=== PATIENT | female | born 1955 | race Hispanic/Latino ===

== ENCOUNTER 2018-03-29 01:37 | Inpatient (IN) | payer BC ==
--- NOTE | 2018-03-29 01:45 | C.PDOC ---
History Of Present Illness 62 year old female is brought to the ED by EMS for evaluation of SOB. Patient reports she has been feeling shortness of breath over the last week, but it worsened tonight. Patient was initially speaking in 2-3 word sentences. Patient received 1 ASA and placed on 2 L nasal cannula by EMS. Patient is feeling much better now, speaking in complete sentences. Patient denies CP, fever, chill, nausea, vomit. Time Seen by Provider: 03/29/18 01:44 Chief Complaint (Nursing): Shortness Of Breath History Per: Patient, EMS History/Exam Limitations: no limitations Onset/Duration Of Symptoms: Days Current Symptoms Are (Timing): Still Present Initiating Event: Upper Respiratory Illness Exacerbating Factor(s): Exertion, Laying Flat, Coughing Current Respiratory Medications: See Home Med List Severity: Moderate Pain Scale Rating Of: 4 Associated Symptoms: Chest Pain. denies: Fever, Chills, Sweating Reports Recently: Treated By A Physician Recent travel outside of the [place]: No Additional History Per: Patient, EMS Past Medical History Reviewed: Historical Data, Nursing Documentation, Vital Signs Vital Signs: Last Vital Signs Temp 98.5 F 03/29/18 01:43 Pulse 66 03/29/18 03:29 Resp 16 03/29/18 03:29 BP 121/81 03/29/18 03:29 Pulse Ox 96 03/29/18 03:29 - Medical History PMH: No Chronic Diseases Surgical History: No Surg Hx Family History: States: Unknown Family Hx - Social History Hx Tobacco Use: No Hx Alcohol Use: No Hx Substance Use: No Review Of Systems Constitutional: Negative for: Fever, Chills Cardiovascular: Negative for: Chest Pain, Palpitations Respiratory: Positive for: Shortness of Breath. Negative for: Cough Gastrointestinal: Negative for: Nausea, Vomiting Skin: Negative for: Rash Neurological: Negative for: Weakness, Numbness, Headache Physical Exam - Physical Exam Appears: Non-toxic, Other (moderate discomfort) Skin: Warm, Dry Head: Normacephalic Eye(s): bilateral: Normal Inspection Oral Mucosa: Moist Lips: Normal Appearing Neck: Supple Chest: Symmetrical Cardiovascular: Rhythm Regular Respiratory: Rales (few at bases), Rhonchi (scattered), No Wheezing, Other ( nasal cannula) Gastrointestinal/Abdominal: Soft, No Tenderness, No Guarding, No Rebound Back: Normal Inspection Extremity: No Tenderness, No Swelling Extremity: Bilateral: Atraumatic, Normal Color And Temperature, Normal ROM Pulses: Left Dorsalis Pedis: Normal, Right Dorsalis Pedis: Normal Neurological/Psych: Oriented x3, Normal Speech Gait: Steady ED Course And Treatment - Laboratory Results Result Diagrams: 03/29/18 02:02 03/29/18 02:02 ECG: Interpreted By Me, Viewed By Me ECG Rhythm: Sinus Rhythm (70), ST/T Changes (ant lat ischemic changes) O2 Sat by Pulse Oximetry: 94 Pulse Ox Interpretation: Normal Progress Note: Plan: - Labs. - ABG. - CXR. - EKG. when patient ambulates to the [facility] [place], operated by [facility] , she desaturates into the low 80's Disposition Discussed With DrShiva: Kevyn Alcantara Comment: accepted the pt on his service and took over the care at 3:34 AM Doctor Will See Patient In The: ED Counseled Patient/Family Regarding: Studies Performed, Diagnosis - Disposition Disposition: HOSPITALIZED Disposition Time: 01:45 Condition: FAIR Forms: [employer] ([place]) - POA Present On Arrival: Poor Glycemic Control - Clinical Impression Clinical Impression: Dyspnea, CHF (congestive heart failure), Renal insufficiency - Scribe Statement The provider has reviewed the documentation as recorded by the Scribe Gama Starr All medical record entries made by the Scribe were at my direction and personally dictated by me. I have reviewed the chart and agree that the record accurately reflects my personal performance of the history, physical exam, medical decision making, and the department course for this patient. I have also personally directed, reviewed, and agree with the discharge instructions and disposition. Decision To Admit - Pt Status Changed To: Hospital Disposition Of: Inpatient - Admit Certification Admit to Inpatient:: After my assessment, the patient will require hospitalization for at least two midnights. This is because of the severity of symptoms shown, intensity of services needed, and/or the medical risk in this patient being treated as an outpatient. - InPatient: Physician Admission Certification: I certify that this patient requires 2 or more midnights of care for the following reason:: After my assessment, the patient will require hospitalization for at least two midnights. This is because of the severity of symptoms shown, intensity of services needed, and/or the medical risk in this patient being treated as an outpatient. - . Bed Request Type: Telemetry Admitting Physician: Kevyn Alcantara Patient Diagnosis: Dyspnea, CHF (congestive heart failure), Renal insufficiency
[2018-03-29 02:05] LABS: BASO % 0.4 % (0.0-2.0); HEMOGLOBIN 13.4 g/dL (11.0-16.0); LYMPH # 3.2 K/uL (1.0-4.3); LYMPH % 39.1 % (20.0-40.0); MEAN CELL VOLUME 83.9 fL (81.0-99.0); MEAN CORPUSCULAR HEMOGLOBIN 29.5 pg (27.0-31.0); MEAN CORPUSCULAR HGB CONC 35.2 g/dL (33.0-37.0); MEAN PLATELET VOLUME 9.4 fL (7.2-11.7); MONO # 0.6 K/uL (0.0-0.8); MONO % 7.3 % (0.0-10.0); NEUT # 4.4 K/uL (1.8-7.0); NEUT % 53.2 % (50.0-75.0); NRBC % 0.1 % (0.0-2.0); RBC 4.55 Mil/uL (3.80-5.20); RED CELL DISTRIBUTION WIDTH 14.2 % (11.5-14.5); WHITE BLOOD COUNT 8.2 K/uL (4.8-10.8)
[2018-03-29 02:12] LABS: INR 1.2; PROTHROMBIN TIME 12.7 SECONDS (9.7-12.2)
[2018-03-29 02:17] LABS: ABG ALLEN TEST POS; ARTERIAL BLOOD GAS HCO3 22.2 mmol/L (21-28); ARTERIAL BLOOD GAS PCO2 24 mm/Hg (35-45); ARTERIAL BLOOD GAS PH 7.49 (7.35-7.45); ARTERIAL BLOOD GAS PO2 58 mm/Hg (80-100)
[2018-03-29 02:47] LABS: ALB/GLOB RATIO 1.3 (1.0-2.1); CALCIUM 8.8 mg/dl (8.6-10.4)
[2018-03-29 02:49] LABS: SQUAMOUS EPITHIAL 6 /hpf (0-5); URINE BILIRUBIN NEGATIVE (NEGATIVE); URINE BLOOD NEGATIVE (NEGATIVE); URINE CLARITY Hazy (Clear); URINE COLOR Yellow (YELLOW); URINE GLUCOSE (UA) NORMAL (Normal); URINE HYALINE CAST 0-2 /lpf (0-2); URINE LEUKOCYTE ESTERASE 2+ Leu/uL (Negative); URINE PROTEIN 1+ mg/dL (NEGATIVE)
[2018-03-29] MEDS ORDERED: Enoxaparin 40 mg Syringe SC STA (03:37)
[2018-03-29] MEDS ORDERED: Potassium Chloride 10 mEq ER Tab PO STA (03:37)
[2018-03-29] MEDS ORDERED: Enoxaparin 100 mg Syringe ONE (03:47)
[2018-03-29] MEDS ORDERED: Potassium Chloride 20 mEq ER Tab PO ONE ×3 (03:49→20:00)
[2018-03-29] MEDS ORDERED: Sodium Chloride 0.9% 500 ML IV ONE (04:30)
--- NOTE | 2018-03-29 05:56 | CP.PCM.HP ---
History of Present Illness - History of Present Illness History of Present Illness: HPI: Patient is a 62 year old female with a history of HTN, HLD, hypothyroidism , CKD stage 3, gout, and newly diagnosed asthma, who presents with complaints of shortness of breath. Her symptoms originally started one year ago, has been worsening for the past 6 months, and were the worst since Thursday. She also admits to a cough, productive of white phlegm. She sleeps with 4 pillows and cannot walk more than 10 feet before becoming out of breath. She recently went to her developmental electronics assembler, Dr. Lyons, who diagnosed her with asthma and prescribed several inhalers. Per her daughter at bedside, her mother recently came back from visiting her son and had been eating fried foods for the past week. Patient denies chest pain, abdominal pain, dyspnea, nausea, vomiting, fevers, headaches, vision changes, dizziness, dysuria, hematuria, changes in urinary stream, leg pain and leg swelling. PMD: Dr. Ellsworth Garden Worker: Dr. Mendoza Pulm: Dr. Lyons PMHx: HTN, HLD, hypothyroidism, CKD stage 3, gout, and newly diagnosed asthma SurgHx: tubal ligation 1982 FamHx: Mother-pancreatic and uterine cancer SocHx: denies tobacco, alcohol, and drug use;currently lives with daughter in . lived with son and son's for two years who smoked 2+ packs per day. 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 Present on Admission - Present on Admission Any Indicators Present on Admission: No Review of Systems - Constitutional Constitutional: Weakness. absent: Chills, Fever, Headache - EENT Ears: Dizziness (intermittent, when walking) - Cardiovascular Cardiovascular: Dyspnea, Dyspnea on Exertion, Rapid Heart Rate. absent: Chest Pain, Edema, Leg Edema - Respiratory Respiratory: Cough (productive of white phlegm), Dyspnea, Dyspnea on Exertion. absent: Hemoptysis, Wheezing - Gastrointestinal Gastrointestinal: absent: Abdominal Pain, Constipation, Diarrhea, Nausea, Vomiting - Genitourinary Genitourinary: absent: Change in Urinary Stream, Dysuria, Hematuria, Urinary Frequency - Musculoskeletal Musculoskeletal: absent: Back Pain - Integumentary Integumentary: absent: Rash, Swelling - Neurological Neurological: Weakness. absent: Dizziness, Headaches - Endocrine Endocrine: Fatigue Past Patient History - Past Social History Smoking Status: Never Smoked - CARDIAC Hx Hypercholesterolemia: Yes Hx Hypertension: Yes - PULMONARY Hx Asthma: Yes Hx Bronchitis: Yes - RENAL Hx Chronic Kidney Disease: Yes ("STAGE 3") Hx Dialysis: No - ENDOCRINE/METABOLIC Hx Hypothyroidism: Yes - MUSCULOSKELETAL/RHEUMATOLOGICAL Hx Gout: Yes - PSYCHIATRIC Hx Substance Use: No - SURGICAL HISTORY Hx Surgeries: No - ANESTHESIA Hx Anesthesia: No Meds Allergies/Adverse Reactions: Allergies Allergy/AdvReac Type Severity Reaction Status Date / Time No Known Allergies Allergy Unverified 03/29/18 01:50 Physical Exam - Constitutional Appears: No Acute Distress - Head Exam Head Exam: absent: ATRAUMATIC, NORMAL INSPECTION - Eye Exam Eye Exam: absent: EOMI, Normal appearance, PERRL - ENT Exam ENT Exam: Mucous Membranes Dry - Respiratory Exam Respiratory Exam: Rales (Right basilar ), NORMAL BREATHING PATTERN. absent: Rhonchi, Wheezes, Respiratory Distress - Cardiovascular Exam Cardiovascular Exam: REGULAR RHYTHM, +S1, +S2 Additional comments: split s2 - GI/Abdominal Exam GI & Abdominal Exam: Normal Bowel Sounds, Soft. absent: Distended, Firm, Tenderness - Extremities Exam Extremities exam: Positive for: normal inspection, pedal pulses present. Negative for: pedal edema, tenderness - Neurological Exam Neurological exam: Alert, Oriented x3 - Psychiatric Exam Psychiatric exam: Normal Affect, Normal Mood - Skin Skin Exam: Dry, Intact, Normal Color, Warm Results - Vital Signs Recent Vital Signs: Last Vital Signs Temp 98.5 F 03/29/18 01:43 Pulse 66 03/29/18 03:29 Resp 16 03/29/18 03:29 BP 121/81 03/29/18 03:29 Pulse Ox 94 L 03/29/18 03:37 - Labs Result Diagrams: 03/29/18 02:02 03/29/18 02:02 Labs: Laboratory Results - last 24 hr 03/29/18 03/29/18 03/29/18 01:55 01:55 02:02 WBC 8.2 RBC 4.55 Hgb 13.4 Hct 38.2 MCV 83.9 MCH 29.5 MCHC 35.2 RDW 14.2 Plt Count 154 MPV 9.4 Neut % (Auto) 53.2 Lymph % (Auto) 39.1 [place] % (Auto) 7.3 Eos % (Auto) 0.0 Baso % (Auto) 0.4 Neut # (Auto) 4.4 Lymph # (Auto) 3.2 [place] # (Auto) 0.6 Eos # (Auto) 0.0 Baso # (Auto) 0.0 PT 12.7 H INR 1.2 APTT 29 Puncture Site pCO2 pO2 HCO3 ABG pH ABG Total CO2 ABG O2 Saturation ABG Base Excess Tre Test ABG Potassium Glucose Lactate Liter Flow Crit Value Called To Crit Value Called By Crit Value Read Back Blood Gas Notified Time Sodium Potassium Chloride Carbon Dioxide Anion Gap BUN Creatinine Est GFR ( Amer) Est GFR (Non-Af Amer) Random Glucose Calcium Magnesium Total Bilirubin AST ALT Alkaline Phosphatase Troponin I NT-Pro-B Natriuret Pep Total Protein Albumin Globulin Albumin/Globulin Ratio Arterial Blood Potassium Urine Color Yellow Urine Clarity Hazy Urine pH 6.0 Ur Specific [place] 1.014 Urine Protein 1+ H Urine Glucose (UA) Normal Urine Ketones Negative Urine Blood Negative Urine Nitrate Negative Urine Bilirubin Negative Urine Urobilinogen 2.0 H Ur Leukocyte Esterase 2+ H Urine WBC (Auto) 6 H Urine RBC (Auto) 1 Ur Squamous Epith Cells 6 H Hyaline Casts 0-2 03/29/18 03/29/18 03/29/18 02:02 02:05 03:04 WBC RBC Hgb Hct MCV MCH MCHC RDW Plt Count MPV Neut % (Auto) Lymph % (Auto) [place] % (Auto) Eos % (Auto) Baso % (Auto) Neut # (Auto) Lymph # (Auto) [place] # (Auto) Eos # (Auto) Baso # (Auto) PT INR APTT Puncture Site Rradial pCO2 24 L pO2 58 L HCO3 22.2 ABG pH 7.49 H ABG Total CO2 19.0 L ABG O2 Saturation 93.0 L ABG Base Excess -3.3 L Tre Test Pos ABG Potassium 2.5 L* Glucose 107 H Lactate 2.3 H Liter Flow 3.0 Crit Value Called To Crit Value Called By Laura adair rcp Crit Value Read Back Y Blood Gas Notified Time 216 Sodium 144 144.0 Potassium 3.0 L Chloride 107 110.0 H Carbon Dioxide 22 Anion Gap 19 BUN 28 H Creatinine 1.8 H Est GFR ( Amer) 34 Est GFR (Non-Af Amer) 29 Random Glucose 148 H Calcium 8.8 Magnesium 1.6 Total Bilirubin 1.1 AST 19 ALT 17 Alkaline Phosphatase 118 Troponin I 0.0910 NT-Pro-B Natriuret Pep 44879 H Total Protein 7.0 Albumin 4.0 Globulin 3.0 Albumin/Globulin Ratio 1.3 Arterial Blood Potassium 2.5 L* Urine Color Urine Clarity Urine pH Ur Specific [place] Urine Protein Urine Glucose (UA) Urine Ketones Urine Blood Urine Nitrate Urine Bilirubin Urine Urobilinogen Ur Leukocyte Esterase Urine WBC (Auto) Urine RBC (Auto) Ur Squamous Epith Cells Hyaline Casts Assessment & Plan - Assessment and Plan (Free Text) Plan: Short of breath Pulmonary congestion secondary to heart failure? Secondary to Acute on chronic Renal failure? * Cardiology, Dr. Kaur, consulted * CXR: bilateral lower lung consolidations * Daily weights * Monitor intake & output * Head of bed 45deg * Echo: f/u * Troponin x1: negative; f/u troponins x2 * BNP 13,300 * Medications: * Duonebs Q6h x 24 hrs until 8am 03/30/18 * O2 via nasal cannula, keep SpO2 > 92% * Lasix IV Q12h Ckd Stage 4 * Nephrology consulted, Dr. Mendoza; help appreciated * Will need to follow up with [facility] to obtain baseline labs Hypokalemia * 40meq KCl + 20meq (in ED) given * Continue to monitor Possible UTI * Urinalysis: 1+ protein, 2+ LE * Urine cx: f/u * Patient is asymptomatic, no treatment at this time. HTN * Hold home medications: amlodipine (until completing echo) and Tenoretic (due to active CHF and acute on chronic renal failure) * Will not start a beta kelsy or perla/arb due to BUN/Cr, CKD4. * Can consider hydralazine/imdur after echo taken * Continue to monitor HLD * Crestor 20mg PO HS * Lipid panel: f/u Hypothyroidism * Continue Synthroid 50mcg PO daily * TSH/Free T4: f/u Gout * Continue Uloric 40mg PO daily * Hold tenoretic as it can cause hyperuricemia Questionable hx of asthma? * Hold home medications * Duonebs Q6h til 8am on 03/30/18 * SOB possibly due to undiagnosed CHF? Prophylaxis: * Heart healthy 2gm Na low carb diet * DVT: risk score fo 4--> Heparin 5000u SC Q8, SCDs * GI: not indicated
[2018-03-29] MEDS: Levothyroxine 50 MCG TAB PO SCH (06:32)
--- NOTE | 2018-03-29 09:16 | RAD ---
PROCEDURE: CHEST RADIOGRAPH, 1 VIEW HISTORY: SOB COMPARISON: None available. FINDINGS: LUNGS: The lungs are well inflated and clear. PLEURA: No pneumothorax or pleural fluid seen. CARDIOVASCULAR: Normal. OSSEOUS STRUCTURES: No significant abnormalities. VISUALIZED UPPER ABDOMEN: Normal. OTHER FINDINGS: None. IMPRESSION: No active pulmonary disease.
[2018-03-29 10:33] LABS: TROPONIN I 0.07 ng/mL (0.00-0.120)
[2018-03-29 11:45] LABS: CALCIUM 9.1 mg/dl (8.6-10.4)
[2018-03-29] MEDS: Albuterol-Ipratrop 3 mg / 0.5 (3 ml) UD INH SCH ×2 (14:01→19:10)
--- NOTE | 2018-03-29 14:21 | CP.PCM.CON ---
<Caitlyn ColeShiva - Last Filed: 03/29/18 17:34> History of Present Illness - History of Present Illness History of Present Illness: PGY2 Consult Note for Dr. Kaur. Patient is a 62 year old female with a history of HTN, HLD, hypothyroidism, CKD stage 3, gout, and newly diagnosed asthma, who presents with complaints of shortness of breath. Patient says at baseline she sleeps at night on multiple pillows and for the past 4 months has become SOB with minimal exertion, only being able to walk a few feet before becoming short of breath. For the past few days her shortness of breath has worsened. She denies any cold symptoms and has not had any sick contacts. She recently went to her dock associate, Dr. Lyons, who diagnosed her with asthma and prescribed several inhalers. Patient has been using the inhalers with no relief. Patient admits to having a few seconds of chest pain yesterday which resolved. Cardiology consulted for possible new CHF. Today patient still is short of breath and becomes very short of breath when she walks to the bathroom. Patient denies chest pain, abdominal pain, nausea, vomiting, fevers, headaches, vision changes, dizziness, dysuria, hematuria, changes in urinary stream, leg pain and leg swelling. PMD: Dr. Ellsworth Nutrition Counselor: Dr. Mendoza (not on dialysis) Pulm: Dr. Lyons PMHx: HTN, HLD, hypothyroidism, CKD stage 3, gout, and newly diagnosed asthma SurgHx: tubal ligation 1982 FamHx: Mother-pancreatic and uterine cancer SocHx: denies tobacco, alcohol, and drug use;currently lives with daughter in . lived with son and son's for two years who smoked 2+ packs per day. 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 Review of Systems - Constitutional Constitutional: absent: Chills, Fever - EENT Eyes: absent: Blurred Vision Nose/Mouth/Throat: absent: Nasal Congestion, Sore Throat - Cardiovascular Cardiovascular: Dyspnea, Dyspnea on Exertion. absent: Leg Edema, Palpitations - Respiratory Respiratory: Dyspnea, Dyspnea on Exertion - Gastrointestinal Gastrointestinal: absent: Abdominal Pain, Constipation, Diarrhea, Nausea, Vomiting - Genitourinary Genitourinary: absent: Dysuria, Hematuria - Musculoskeletal Musculoskeletal: absent: Numbness, Stiffness, Tingling - Integumentary Integumentary: absent: Rash Past Patient History - Past Social History Smoking Status: Never Smoked - CARDIAC Hx Hypercholesterolemia: Yes Hx Hypertension: Yes - PULMONARY Hx Asthma: Yes Hx Bronchitis: Yes - RENAL Hx Chronic Kidney Disease: Yes ("STAGE 3") Hx Dialysis: No - ENDOCRINE/METABOLIC Hx Hypothyroidism: Yes - MUSCULOSKELETAL/RHEUMATOLOGICAL Hx Gout: Yes - PSYCHIATRIC Hx Substance Use: No - SURGICAL HISTORY Hx Surgeries: No - ANESTHESIA Hx Anesthesia: No Meds Allergies/Adverse Reactions: Allergies Allergy/AdvReac Type Severity Reaction Status Date / Time shellfish derived Allergy Mild ITCHING Verified 03/29/18 08:40 - Medications Medications: Current Medications Albuterol/Ipratropium (Duoneb 3 Mg/0.5 Mg (3 Ml) Ud) 3 ml INH RQ6 [facility] Stop: 03/30/18 08:00 Last Admin: 03/29/18 14:01 Dose: 3 ml Furosemide (Lasix) 20 mg IVP Q12H [facility] Last Admin: 03/29/18 09:44 Dose: 20 mg Heparin Sodium (Porcine) (Heparin) 5,000 units SC Q8 [facility] Home Med (Febuxostat [Uloric]) 40 mg PO DAILY [facility] Levothyroxine Sodium (Synthroid) 50 mcg PO DAILY@0630 [facility] Last Admin: 03/29/18 06:32 Dose: 50 mcg Rosuvastatin Calcium (Crestor) [address] [facility] Physical Exam - Constitutional Appears: Non-toxic, No Acute Distress - Head Exam Head Exam: ATRAUMATIC, NORMAL INSPECTION, NORMOCEPHALIC - Eye Exam Eye Exam: EOMI, Normal appearance - ENT Exam ENT Exam: Mucous Membranes Moist - Respiratory Exam Respiratory Exam: Clear to Auscultation Bilateral, NORMAL BREATHING PATTERN - Cardiovascular Exam Cardiovascular Exam: REGULAR RHYTHM, RRR, +S1, +S2 - GI/Abdominal Exam GI & Abdominal Exam: Normal Bowel Sounds, Soft. absent: Distended - Extremities Exam Extremities exam: Positive for: normal inspection. Negative for: tenderness Additional comments: trace pedal edema - Neurological Exam Neurological exam: Alert, Oriented x3 - Psychiatric Exam Psychiatric exam: Normal Affect, Normal Mood - Skin Skin Exam: Intact, Normal Color, Warm Results - Vital Signs Recent Vital Signs: Last Vital Signs Temp 99.9 F H 03/29/18 07:00 Pulse 65 03/29/18 14:04 Resp 20 03/29/18 07:54 BP 120/75 03/29/18 09:44 Pulse Ox 97 03/29/18 07:40 - Labs Result Diagrams: 03/29/18 02:02 03/29/18 06:12 Labs: Laboratory Results - last 24 hr 03/29/18 03/29/18 03/29/18 01:55 01:55 02:02 WBC 8.2 RBC 4.55 Hgb 13.4 Hct 38.2 MCV 83.9 MCH 29.5 MCHC 35.2 RDW 14.2 Plt Count 154 MPV 9.4 Neut % (Auto) 53.2 Lymph % (Auto) 39.1 [place] % (Auto) 7.3 Eos % (Auto) 0.0 Baso % (Auto) 0.4 Neut # (Auto) 4.4 Lymph # (Auto) 3.2 [place] # (Auto) 0.6 Eos # (Auto) 0.0 Baso # (Auto) 0.0 PT 12.7 H INR 1.2 APTT 29 Puncture Site pCO2 pO2 HCO3 ABG pH ABG Total CO2 ABG O2 Saturation ABG Base Excess Tre Test ABG Potassium Glucose Lactate Liter Flow Crit Value Called To Crit Value Called By Crit Value Read Back Blood Gas Notified Time Sodium Potassium Chloride Carbon Dioxide Anion Gap BUN Creatinine Est GFR ( Amer) Est GFR (Non-Af Amer) Random Glucose Calcium Phosphorus Magnesium Total Bilirubin AST ALT Alkaline Phosphatase Troponin I NT-Pro-B Natriuret Pep Total Protein Albumin Globulin Albumin/Globulin Ratio Free T4 TSH 3rd Generation Arterial Blood Potassium Urine Color Yellow Urine Clarity Hazy Urine pH 6.0 Ur Specific [place] 1.014 Urine Protein 1+ H Urine Glucose (UA) Normal Urine Ketones Negative Urine Blood Negative Urine Nitrate Negative Urine Bilirubin Negative Urine Urobilinogen 2.0 H Ur Leukocyte Esterase 2+ H Urine WBC (Auto) 6 H Urine RBC (Auto) 1 Ur Squamous Epith Cells 6 H Hyaline Casts 0-2 0703/29/18 03/29/18 02:02 02:05 03:04 WBC RBC Hgb Hct MCV MCH MCHC RDW Plt Count MPV Neut % (Auto) Lymph % (Auto) [place] % (Auto) Eos % (Auto) Baso % (Auto) Neut # (Auto) Lymph # (Auto) [place] # (Auto) Eos # (Auto) Baso # (Auto) PT INR APTT Puncture Site Rradial pCO2 24 L pO2 58 L HCO3 22.2 ABG pH 7.49 H ABG Total CO2 19.0 L ABG O2 Saturation 93.0 L ABG Base Excess -3.3 L Tre Test Pos ABG Potassium 2.5 L* Glucose 107 H Lactate 2.3 H Liter Flow 3.0 Crit Value Called To Crit Value Called By Laura adair rcp Crit Value Read Back Y Blood Gas Notified Time 216 Sodium 144 144.0 Potassium 3.0 L Chloride 107 110.0 H Carbon Dioxide 22 Anion Gap 19 BUN 28 H Creatinine 1.8 H Est GFR ( Amer) 34 Est GFR (Non-Af Amer) 29 Random Glucose 148 H Calcium 8.8 Phosphorus Magnesium 1.6 Total Bilirubin 1.1 AST 19 ALT 17 Alkaline Phosphatase 118 Troponin I Cancelled 0.0910 NT-Pro-B Natriuret Pep 71876 H Total Protein 7.0 Albumin 4.0 Globulin 3.0 Albumin/Globulin Ratio 1.3 Free T4 TSH 3rd Generation Arterial Blood Potassium 2.5 L* Urine Color Urine Clarity Urine pH Ur Specific [place] Urine Protein Urine Glucose (UA) Urine Ketones Urine Blood Urine Nitrate Urine Bilirubin Urine Urobilinogen Ur Leukocyte Esterase Urine WBC (Auto) Urine RBC (Auto) Ur Squamous Epith Cells Hyaline Casts 03/29/18 03/29/18 06:12 06:12 WBC RBC Hgb Hct MCV MCH MCHC RDW Plt Count MPV Neut % (Auto) Lymph % (Auto) [place] % (Auto) Eos % (Auto) Baso % (Auto) Neut # (Auto) Lymph # (Auto) [place] # (Auto) Eos # (Auto) Baso # (Auto) PT INR APTT Puncture Site pCO2 pO2 HCO3 ABG pH ABG Total CO2 ABG O2 Saturation ABG Base Excess Tre Test ABG Potassium Glucose Lactate Liter Flow Crit Value Called To Crit Value Called By Crit Value Read Back Blood Gas Notified Time Sodium 145 Potassium 3.2 L Chloride 105 Carbon Dioxide 20 L Anion Gap 23 H BUN 29 H Creatinine 1.6 H Est GFR ( Amer) 40 Est GFR (Non-Af Amer) 33 Random Glucose 125 H Calcium 9.1 Phosphorus 3.4 Magnesium 1.6 Total Bilirubin AST ALT Alkaline Phosphatase Troponin I 0.0700 NT-Pro-B Natriuret Pep Total Protein Albumin Globulin Albumin/Globulin Ratio Free T4 2.17 TSH 3rd Generation 4.40 Arterial Blood Potassium Urine Color Urine Clarity Urine pH Ur Specific [place] Urine Protein Urine Glucose (UA) Urine Ketones Urine Blood Urine Nitrate Urine Bilirubin Urine Urobilinogen Ur Leukocyte Esterase Urine WBC (Auto) Urine RBC (Auto) Ur Squamous Epith Cells Hyaline Casts Assessment & Plan - Assessment and Plan (Free Text) Assessment: Short of breath Pulmonary congestion secondary to heart failure * Daily weights * Monitor intake & output * Head of bed 45deg * Echo: f/u * Troponin negative x 3 * BNP 13,300 * Medications: * Duonebs Q6h x 24 hrs until 8am 03/30/18 * O2 via nasal cannula, keep SpO2 > 92% * Lasix 20mg IV Q12h HTN * Hold home medications: amlodipine (until completing echo) and Tenoretic (due to active CHF and acute on chronic renal failure) * Will not start a beta kelsy or perla/arb due to BUN/Cr, CKD4. * Can consider hydralazine/imdur after echo taken * Continue to monitor R/O ischemic heart disease ekg with prolonged QTC and ST and T wave abnormalities repeat EKG electrolyte abnormalities- f/u repeat CMP and Mag <Truman Kaur - Last Filed: 03/29/18 23:30> Meds - Medications Medications: Current Medications Albuterol/Ipratropium (Duoneb 3 Mg/0.5 Mg (3 Ml) Ud) 3 ml INH RQ6 [facility] Stop: 03/30/18 08:00 Last Admin: 03/29/18 19:10 Dose: 3 ml Furosemide (Lasix) 20 mg IVP Q12H [facility] Last Admin: 03/29/18 22:04 Dose: 20 mg Heparin Sodium (Porcine) (Heparin) 5,000 units SC Q8 [facility] Home Med (Febuxostat [Uloric]) 40 mg PO DAILY [facility] Levothyroxine Sodium (Synthroid) 50 mcg PO DAILY@0630 [facility] Last Admin: 03/29/18 06:32 Dose: 50 mcg Magnesium Oxide (Mag-Ox) 400 mg PO TID [facility] Stop: 04/01/18 10:01 Rosuvastatin Calcium (Crestor) [address] [facility] Last Admin: 03/29/18 22:04 Dose: 20 mg Results - Vital Signs Recent Vital Signs: Last Vital Signs Temp 98.2 F 03/29/18 21:19 Pulse 72 03/29/18 21:19 Resp 20 03/29/18 21:19 BP 116/77 03/29/18 22:04 Pulse Ox 90 L 03/29/18 21:19 - Labs Result Diagrams: 03/29/18 02:02 03/29/18 17:32 Labs: Laboratory Results - last 24 hr 03/29/18 03/29/18 03/29/18 01:55 01:55 02:02 WBC 8.2 RBC 4.55 Hgb 13.4 Hct 38.2 MCV 83.9 MCH 29.5 MCHC 35.2 RDW 14.2 Plt Count 154 MPV 9.4 Neut % (Auto) 53.2 Lymph % (Auto) 39.1 [place] % (Auto) 7.3 Eos % (Auto) 0.0 Baso % (Auto) 0.4 Neut # (Auto) 4.4 Lymph # (Auto) 3.2 [place] # (Auto) 0.6 Eos # (Auto) 0.0 Baso # (Auto) 0.0 PT 12.7 H INR 1.2 APTT 29 Puncture Site pCO2 pO2 HCO3 ABG pH ABG Total CO2 ABG O2 Saturation ABG Base Excess Tre Test ABG Potassium Glucose Lactate Liter Flow Crit Value Called To Crit Value Called By Crit Value Read Back Blood Gas Notified Time Sodium Potassium Chloride Carbon Dioxide Anion Gap BUN Creatinine Est GFR ( Amer) Est GFR (Non-Af Amer) Random Glucose Calcium Phosphorus Magnesium Total Bilirubin AST ALT Alkaline Phosphatase Troponin I NT-Pro-B Natriuret Pep Total Protein Albumin Globulin Albumin/Globulin Ratio Free T4 TSH 3rd Generation Arterial Blood Potassium Urine Color Yellow Urine Clarity Hazy Urine pH 6.0 Ur Specific [place] 1.014 Urine Protein 1+ H Urine Glucose (UA) Normal Urine Ketones Negative Urine Blood Negative Urine Nitrate Negative Urine Bilirubin Negative Urine Urobilinogen 2.0 H Ur Leukocyte Esterase 2+ H Urine WBC (Auto) 6 H Urine RBC (Auto) 1 Ur Squamous Epith Cells 6 H Hyaline Casts 0-2 03/29/18 03/29/18 03/29/18 02:02 02:05 03:04 WBC RBC Hgb Hct MCV MCH MCHC RDW Plt Count MPV Neut % (Auto) Lymph % (Auto) [place] % (Auto) Eos % (Auto) Baso % (Auto) Neut # (Auto) Lymph # (Auto) [place] # (Auto) Eos # (Auto) Baso # (Auto) PT INR APTT Puncture Site Rradial pCO2 24 L pO2 58 L HCO3 22.2 ABG pH 7.49 H ABG Total CO2 19.0 L ABG O2 Saturation 93.0 L ABG Base Excess -3.3 L Tre Test Pos ABG Potassium 2.5 L* Glucose 107 H Lactate 2.3 H Liter Flow 3.0 Crit Value Called To Crit Value Called By Laura adair rcp Crit Value Read Back Y Blood Gas Notified Time 216 Sodium 144 144.0 Potassium 3.0 L Chloride 107 110.0 H Carbon Dioxide 22 Anion Gap 19 BUN 28 H Creatinine 1.8 H Est GFR ( Amer) 34 Est GFR (Non-Af Amer) 29 Random Glucose 148 H Calcium 8.8 Phosphorus Magnesium 1.6 Total Bilirubin 1.1 AST 19 ALT 17 Alkaline Phosphatase 118 Troponin I Cancelled 0.0910 NT-Pro-B Natriuret Pep 25618 H Total Protein 7.0 Albumin 4.0 Globulin 3.0 Albumin/Globulin Ratio 1.3 Free T4 TSH 3rd Generation Arterial Blood Potassium 2.5 L* Urine Color Urine Clarity Urine pH Ur Specific [place] Urine Protein Urine Glucose (UA) Urine Ketones Urine Blood Urine Nitrate Urine Bilirubin Urine Urobilinogen Ur Leukocyte Esterase Urine WBC (Auto) Urine RBC (Auto) Ur Squamous Epith Cells Hyaline Casts 03/29/18 03/29/18 03/29/18 06:12 06:12 17:05 WBC RBC Hgb Hct MCV MCH MCHC RDW Plt Count MPV Neut % (Auto) Lymph % (Auto) [place] % (Auto) Eos % (Auto) Baso % (Auto) Neut # (Auto) Lymph # (Auto) [place] # (Auto) Eos # (Auto) Baso # (Auto) PT INR APTT Puncture Site pCO2 pO2 HCO3 ABG pH ABG Total CO2 ABG O2 Saturation ABG Base Excess Tre Test ABG Potassium Glucose Lactate Liter Flow Crit Value Called To Crit Value Called By Crit Value Read Back Blood Gas Notified Time Sodium 145 Potassium 3.2 L Chloride 105 Carbon Dioxide 20 L Anion Gap 23 H BUN 29 H Creatinine 1.6 H Est GFR ( Amer) 40 Est GFR (Non-Af Amer) 33 Random Glucose 125 H Calcium 9.1 Phosphorus 3.4 Magnesium 1.6 Total Bilirubin AST ALT Alkaline Phosphatase Troponin I 0.0700 0.0500 NT-Pro-B Natriuret Pep Total Protein Albumin Globulin Albumin/Globulin Ratio Free T4 2.17 TSH 3rd Generation 4.40 Arterial Blood Potassium Urine Color Urine Clarity Urine pH Ur Specific [place] Urine Protein Urine Glucose (UA) Urine Ketones Urine Blood Urine Nitrate Urine Bilirubin Urine Urobilinogen Ur Leukocyte Esterase Urine WBC (Auto) Urine RBC (Auto) Ur Squamous Epith Cells Hyaline Casts 03/29/18 17:32 WBC RBC Hgb Hct MCV MCH MCHC RDW Plt Count MPV Neut % (Auto) Lymph % (Auto) [place] % (Auto) Eos % (Auto) Baso % (Auto) Neut # (Auto) Lymph # (Auto) [place] # (Auto) Eos # (Auto) Baso # (Auto) PT INR APTT Puncture Site pCO2 pO2 HCO3 ABG pH ABG Total CO2 ABG O2 Saturation ABG Base Excess Tre Test ABG Potassium Glucose Lactate Liter Flow Crit Value Called To Crit Value Called By Crit Value Read Back Blood Gas Notified Time Sodium 143 Potassium 3.3 L Chloride 104 Carbon Dioxide 21 L Anion Gap 22 H BUN 33 H Creatinine 2.5 H Est GFR ( Amer) 24 Est GFR (Non-Af Amer) 20 Random Glucose 108 H Calcium 9.4 Phosphorus Magnesium 1.4 L Total Bilirubin 1.4 H AST 24 ALT 18 Alkaline Phosphatase 124 Troponin I NT-Pro-B Natriuret Pep Total Protein 7.6 Albumin 4.3 Globulin 3.3 Albumin/Globulin Ratio 1.3 Free T4 TSH 3rd Generation Arterial Blood Potassium Urine Color Urine Clarity Urine pH Ur Specific [place] Urine Protein Urine Glucose (UA) Urine Ketones Urine Blood Urine Nitrate Urine Bilirubin Urine Urobilinogen Ur Leukocyte Esterase Urine WBC (Auto) Urine RBC (Auto) Ur Squamous Epith Cells Hyaline Casts Assessment & Plan - Assessment and Plan (Free Text) Plan: Patient seen and evaluated personally by me Dyspnea likley Acute systolic CHF Prolonged QT Acute on Chronic CKD Electrolyte abnormalities Correct K/Mag Check ECHO
--- NOTE | 2018-03-29 16:01 | CP.PCM.PN ---
<Surya Omer - Last Filed: 03/29/18 18:16> Objective - Vital Signs/Intake and Output Vital Signs (last 24 hours): Temp Pulse Resp BP Pulse Ox 97.8 F 68 20 107/73 98 03/29/18 15:45 03/29/18 15:45 03/29/18 15:45 03/29/18 15:45 03/29/18 15:45 Intake and Output: 03/29/18 03/29/18 06:59 18:59 Intake Total 700 300 Output Total 1300 Balance -600 300 - Medications Medications: Current Medications Albuterol/Ipratropium (Duoneb 3 Mg/0.5 Mg (3 Ml) Ud) 3 ml INH RQ6 [facility] Stop: 03/30/18 08:00 Last Admin: 03/29/18 14:01 Dose: 3 ml Furosemide (Lasix) 20 mg IVP Q12H [facility] Last Admin: 03/29/18 09:44 Dose: 20 mg Heparin Sodium (Porcine) (Heparin) 5,000 units SC Q8 [facility] Home Med (Febuxostat [Uloric]) 40 mg PO DAILY [facility] Levothyroxine Sodium (Synthroid) 50 mcg PO DAILY@0630 [facility] Last Admin: 03/29/18 06:32 Dose: 50 mcg Rosuvastatin Calcium (Crestor) 20 mg PO HS [facility] - Labs Labs: 03/29/18 02:02 03/29/18 06:12 PT 12.7 SECONDS (9.7-12.2) H 03/29/18 01:55 INR 1.2 03/29/18 01:55 APTT 29 SECONDS (21-34) 03/29/18 01:55 Attending/Attestation - Attestation I have personally seen and examined this patient.: Yes I have fully participated in the care of the patient.: Yes I have reviewed all pertinent clinical information, including history, physical exam and plan: Yes Notes (Text): Seen and examined by me with the resident. She is sitting comfortable,Denies sob ,Her breathing is better 1.Dyspnea Rule out CHF /most likely CHF,has high BNP,pulmonary congestion improved with Lasix Follow Echo,continue lasix,imdur and hydralazine 2. Chronic renal failure stage 4 3.Prolonged QT and ST T wave changes-Medication reviewed.not on meds can cause prolonged QT correct electrolyses and follow repeat EKG. cardiology consult appreciated 4.Hypothyroid 5.Hypokalemia 6.Gout d/w Resident. I agree with the documentation of the assessment and the plan <Zelalem Luz - Last Filed: 03/29/18 19:26> Subjective - Date & Time of Evaluation Date of Evaluation: 03/29/18 Time of Evaluation: 15:58 - Subjective Subjective: PGY-[address] Omer service Pt is seen and examined at bedside. Pt reports no acute events overnight. Pt states feeling much better, with SOB improving. Pt continues to cough, with white sputum. Pt is ambulating. Pt denies fever, chills, SOB, Chest pain, fatigue, dyspnea, abdominal pain. Objective - Vital Signs/Intake and Output Vital Signs (last 24 hours): Temp Pulse Resp BP Pulse Ox 97.8 F 68 20 107/73 98 03/29/18 15:45 03/29/18 15:45 03/29/18 15:45 03/29/18 15:45 03/29/18 15:45 Intake and Output: 03/29/18 03/29/18 06:59 18:59 Intake Total 700 300 Output Total 1300 Balance -600 300 - Medications Medications: Current Medications Albuterol/Ipratropium (Duoneb 3 Mg/0.5 Mg (3 Ml) Ud) 3 ml INH RQ6 [facility] Stop: 03/30/18 08:00 Last Admin: 03/29/18 14:01 Dose: 3 ml Furosemide (Lasix) 20 mg IVP Q12H [facility] Last Admin: 03/29/18 09:44 Dose: 20 mg Heparin Sodium (Porcine) (Heparin) 5,000 units SC Q8 [facility] Home Med (Febuxostat [[facility]]) 40 mg PO DAILY [facility] Levothyroxine Sodium (Synthroid) 50 mcg PO DAILY@0630 [facility] Last Admin: 03/29/18 06:32 Dose: 50 mcg Rosuvastatin Calcium (Crestor) 20 mg PO HS [facility] - Labs Labs: 03/29/18 02:02 03/29/18 06:12 PT 12.7 SECONDS (9.7-12.2) H 03/29/18 01:55 INR 1.2 03/29/18 01:55 APTT 29 SECONDS (21-34) 03/29/18 01:55 - Constitutional Appears: Well, Non-toxic, No Acute Distress - Head Exam Head Exam: ATRAUMATIC, NORMAL INSPECTION - Eye Exam Eye Exam: EOMI, Normal appearance - ENT Exam ENT Exam: Mucous Membranes Moist, Normal Exam - Neck Exam Neck Exam: Full ROM, Normal Inspection - Respiratory Exam Respiratory Exam: Clear to Ausculation Bilateral, NORMAL BREATHING PATTERN. absent: Accessory Muscle Use, Rales, Rhonchi, Wheezes - Cardiovascular Exam Cardiovascular Exam: REGULAR RHYTHM, +S1, +S2 - GI/Abdominal Exam GI & Abdominal Exam: Soft, Normal Bowel Sounds - Neurological Exam Neurological Exam: Alert, Awake, Oriented x3 - Psychiatric Exam Psychiatric exam: Normal Affect, Normal Mood Assessment and Plan - Assessment and Plan (Free Text) Plan: Short of breath Pulmonary congestion secondary to heart failure? Secondary to Acute on chronic Renal failure? * Cardiology, Dr. Kaur, consulted * CXR: bilateral lower lung consolidations * Daily weights * Monitor intake & output * Head of bed 45deg * Echo: f/u for possible new onset heart failure * Troponin x3: negative * BNP 13,300 * Medications: * Duonebs Q6h x 24 hrs until 8am 03/30/18 * O2 via nasal cannula, keep SpO2 > 92% * Lasix IV Q12h Prolonged QT and ST T waves changes * F/U CMP, Mg * repeat EKG tomorrow * Cardio consulted: Manuel Mckeon, help appreciated * Meds: - Magnesium Oxide 400mg PO TID - Magnesium Sulfate/ Dextrose 1 gm in 100 mls 2 bags Ckd Stage 4 * Nephrology consulted, Dr. Mendoza; help appreciated * Will need to follow up with bobcat driver/labor to obtain baseline labs Hypokalemia * 40meq KCl + 20meq (in ED) given * 03/29: Potassium 3.2 * Continue to monitor * Meds: -Potassium chloride 10 meq in 100 mls 2 bags - K-Dur 40 meq PO once on 03/30 Possible UTI * Urinalysis: 1+ protein, 2+ LE * Urine cx: f/u * Patient is asymptomatic, no treatment at this time. HTN * Hold home medications: amlodipine (until completing echo) and Tenoretic (due to active CHF and acute on chronic renal failure) * Will not start a beta kelsy or perla/arb due to BUN/Cr, CKD4. * Can consider hydralazine/imdur after echo taken * Continue to monitor HLD * Crestor 20mg PO HS * Lipid panel: f/u Hypothyroidism * Continue Synthroid 50mcg PO daily * TSH/Free T4: 4.40/2.17 Gout * Hold tenoretic as it can cause hyperuricemia Questionable hx of asthma? * Hold home medications * Duonebs Q6h til 8am on 03/30/18 * SOB possibly due to undiagnosed CHF? Prophylaxis: * Heart healthy 2gm Na low carb diet * DVT: risk score fo 4--> Heparin 5000u SC Q8, SCDs * GI: not indicated
[2018-03-29 18:10] LABS: ALB/GLOB RATIO 1.3 (1.0-2.1); ALBUMIN 4.3 g/dL (3.5-5.0); CALCIUM 9.4 mg/dl (8.6-10.4)
[2018-03-29] MEDS ORDERED: Potassium Chloride 20 mEq ER Tab PO SCH (18:30)
[2018-03-29] MEDS: Magnesium Sulfate 1 gm in D5W 1 GM/100 ML BAG IVPB SCH ×2 (19:24→20:41)
--- NOTE | 2018-03-29 23:19 | CP.PCM.CON ---
History of Present Illness - History of Present Illness History of Present Illness: EP consult Re: long QT interval Chart/imaging reviewed Patient seen and examined 62 year old female admitted with cough and shortness of breath; she has not been admitted in the past and follows occasionally with Dr. roca for thyroid problems and systemic hypertension and kidney failure She denied chest pain dizziness syncope palpitations There is no family history of heart disease; parents in the eightees of old age; has one brother and five sisters all healthy Denied smoking alcohol or drug abuse Exam Afebrile Normal venous pressures Clear lungs ?PMI normal heart sounds No murmurs or rub Soft abdomen No edema DP +=+ EKG: sinus diffuse T wave inversions and prolonged QTc CXR: unremarkable Labs: low K CO2 and creatinine 1.8 Past Patient History - Past Medical History & Family History Past Medical History?: Yes - Past Social History Smoking Status: Never Smoked - CARDIAC Hx Hypercholesterolemia: Yes Hx Hypertension: Yes - PULMONARY Hx Asthma: Yes Hx Bronchitis: Yes - RENAL Hx Chronic Kidney Disease: Yes ("STAGE 3") Hx Dialysis: No - ENDOCRINE/METABOLIC Hx Hypothyroidism: Yes - MUSCULOSKELETAL/RHEUMATOLOGICAL Hx Gout: Yes - PSYCHIATRIC Hx Substance Use: No - SURGICAL HISTORY Hx Surgeries: No - ANESTHESIA Hx Anesthesia: No Meds Allergies/Adverse Reactions: Allergies Allergy/AdvReac Type Severity Reaction Status Date / Time shellfish derived Allergy Mild ITCHING Verified 03/29/18 08:40 - Medications Medications: Current Medications Albuterol/Ipratropium (Duoneb 3 Mg/0.5 Mg (3 Ml) Ud) 3 ml INH RQ6 [facility] Stop: 03/30/18 08:00 Last Admin: 03/29/18 19:10 Dose: 3 ml Furosemide (Lasix) 20 mg IVP Q12H [facility] Last Admin: 03/29/18 22:04 Dose: 20 mg Heparin Sodium (Porcine) (Heparin) 5,000 units SC Q8 [facility] Home Med (Febuxostat [Uloric]) 40 mg PO DAILY [facility] Levothyroxine Sodium (Synthroid) 50 mcg PO DAILY@0630 [facility] Last Admin: 03/29/18 06:32 Dose: 50 mcg Magnesium Oxide (Mag-Ox) 400 mg PO TID [facility] Stop: 04/01/18 10:01 Rosuvastatin Calcium (Crestor) 20 mg PO HS [facility] Last Admin: 03/29/18 22:04 Dose: 20 mg Results - Vital Signs Recent Vital Signs: Last Vital Signs Temp 98.2 F 03/29/18 21:19 Pulse 72 03/29/18 21:19 Resp 20 03/29/18 21:19 BP 116/77 03/29/18 22:04 Pulse Ox 90 L 03/29/18 21:19 - Labs Result Diagrams: 03/29/18 02:02 03/29/18 17:32 Labs: Laboratory Results - last 24 hr 03/29/18 03/29/18 03/29/18 01:55 01:55 02:02 WBC 8.2 RBC 4.55 Hgb 13.4 Hct 38.2 MCV 83.9 MCH 29.5 MCHC 35.2 RDW 14.2 Plt Count 154 MPV 9.4 Neut % (Auto) 53.2 Lymph % (Auto) 39.1 [place] % (Auto) 7.3 Eos % (Auto) 0.0 Baso % (Auto) 0.4 Neut # (Auto) 4.4 Lymph # (Auto) 3.2 [place] # (Auto) 0.6 Eos # (Auto) 0.0 Baso # (Auto) 0.0 PT 12.7 H INR 1.2 APTT 29 Puncture Site pCO2 pO2 HCO3 ABG pH ABG Total CO2 ABG O2 Saturation ABG Base Excess Tre Test ABG Potassium Glucose Lactate Liter Flow Crit Value Called To Crit Value Called By Crit Value Read Back Blood Gas Notified Time Sodium Potassium Chloride Carbon Dioxide Anion Gap BUN Creatinine Est GFR ( Amer) Est GFR (Non-Af Amer) Random Glucose Calcium Phosphorus Magnesium Total Bilirubin AST ALT Alkaline Phosphatase Troponin I NT-Pro-B Natriuret Pep Total Protein Albumin Globulin Albumin/Globulin Ratio Free T4 TSH 3rd Generation Arterial Blood Potassium Urine Color Yellow Urine Clarity Hazy Urine pH 6.0 Ur Specific [place] 1.014 Urine Protein 1+ H Urine Glucose (UA) Normal Urine Ketones Negative Urine Blood Negative Urine Nitrate Negative Urine Bilirubin Negative Urine Urobilinogen 2.0 H Ur Leukocyte Esterase 2+ H Urine WBC (Auto) 6 H Urine RBC (Auto) 1 Ur Squamous Epith Cells 6 H Hyaline Casts 0-2 03/29/18 03/29/18 03/29/18 02:02 02:05 03:04 WBC RBC Hgb Hct MCV MCH MCHC RDW Plt Count MPV Neut % (Auto) Lymph % (Auto) [place] % (Auto) Eos % (Auto) Baso % (Auto) Neut # (Auto) Lymph # (Auto) [place] # (Auto) Eos # (Auto) Baso # (Auto) PT INR APTT Puncture Site Rradial pCO2 24 L pO2 58 L HCO3 22.2 ABG pH 7.49 H ABG Total CO2 19.0 L ABG O2 Saturation 93.0 L ABG Base Excess -3.3 L Tre Test Pos ABG Potassium 2.5 L* Glucose 107 H Lactate 2.3 H Liter Flow 3.0 Crit Value Called To Crit Value Called By Laura adair rcp Crit Value Read Back Y Blood Gas Notified Time 216 Sodium 144 144.0 Potassium 3.0 L Chloride 107 110.0 H Carbon Dioxide 22 Anion Gap 19 BUN 28 H Creatinine 1.8 H Est GFR ( Amer) 34 Est GFR (Non-Af Amer) 29 Random Glucose 148 H Calcium 8.8 Phosphorus Magnesium 1.6 Total Bilirubin 1.1 AST 19 ALT 17 Alkaline Phosphatase 118 Troponin I Cancelled 0.0910 NT-Pro-B Natriuret Pep 21797 H Total Protein 7.0 Albumin 4.0 Globulin 3.0 Albumin/Globulin Ratio 1.3 Free T4 TSH 3rd Generation Arterial Blood Potassium 2.5 L* Urine Color Urine Clarity Urine pH Ur Specific [place] Urine Protein Urine Glucose (UA) Urine Ketones Urine Blood Urine Nitrate Urine Bilirubin Urine Urobilinogen Ur Leukocyte Esterase Urine WBC (Auto) Urine RBC (Auto) Ur Squamous Epith Cells Hyaline Casts 03/29/18 03/29/18 03/29/18 06:12 06:12 17:05 WBC RBC Hgb Hct MCV MCH MCHC RDW Plt Count MPV Neut % (Auto) Lymph % (Auto) [place] % (Auto) Eos % (Auto) Baso % (Auto) Neut # (Auto) Lymph # (Auto) [place] # (Auto) Eos # (Auto) Baso # (Auto) PT INR APTT Puncture Site pCO2 pO2 HCO3 ABG pH ABG Total CO2 ABG O2 Saturation ABG Base Excess Tre Test ABG Potassium Glucose Lactate Liter Flow Crit Value Called To Crit Value Called By Crit Value Read Back Blood Gas Notified Time Sodium 145 Potassium 3.2 L Chloride 105 Carbon Dioxide 20 L Anion Gap 23 H BUN 29 H Creatinine 1.6 H Est GFR ( Amer) 40 Est GFR (Non-Af Amer) 33 Random Glucose 125 H Calcium 9.1 Phosphorus 3.4 Magnesium 1.6 Total Bilirubin AST ALT Alkaline Phosphatase Troponin I 0.0700 0.0500 NT-Pro-B Natriuret Pep Total Protein Albumin Globulin Albumin/Globulin Ratio Free T4 2.17 TSH 3rd Generation 4.40 Arterial Blood Potassium Urine Color Urine Clarity Urine pH Ur Specific [place] Urine Protein Urine Glucose (UA) Urine Ketones Urine Blood Urine Nitrate Urine Bilirubin Urine Urobilinogen Ur Leukocyte Esterase Urine WBC (Auto) Urine RBC (Auto) Ur Squamous Epith Cells Hyaline Casts 03/29/18 17:32 WBC RBC Hgb Hct MCV MCH MCHC RDW Plt Count MPV Neut % (Auto) Lymph % (Auto) [place] % (Auto) Eos % (Auto) Baso % (Auto) Neut # (Auto) Lymph # (Auto) [place] # (Auto) Eos # (Auto) Baso # (Auto) PT INR APTT Puncture Site pCO2 pO2 HCO3 ABG pH ABG Total CO2 ABG O2 Saturation ABG Base Excess Tre Test ABG Potassium Glucose Lactate Liter Flow Crit Value Called To Crit Value Called By Crit Value Read Back Blood Gas Notified Time Sodium 143 Potassium 3.3 L Chloride 104 Carbon Dioxide 21 L Anion Gap 22 H BUN 33 H Creatinine 2.5 H Est GFR ( Amer) 24 Est GFR (Non-Af Amer) 20 Random Glucose 108 H Calcium 9.4 Phosphorus Magnesium 1.4 L Total Bilirubin 1.4 H AST 24 ALT 18 Alkaline Phosphatase 124 Troponin I NT-Pro-B Natriuret Pep Total Protein 7.6 Albumin 4.3 Globulin 3.3 Albumin/Globulin Ratio 1.3 Free T4 TSH 3rd Generation Arterial Blood Potassium Urine Color Urine Clarity Urine pH Ur Specific [place] Urine Protein Urine Glucose (UA) Urine Ketones Urine Blood Urine Nitrate Urine Bilirubin Urine Urobilinogen Ur Leukocyte Esterase Urine WBC (Auto) Urine RBC (Auto) Ur Squamous Epith Cells Hyaline Casts Assessment & Plan - Assessment and Plan (Free Text) Assessment: Ms. Mitchell has incidental significantly prolonged QTc interval; the latter is likely related to hypokalemia ? related to diuretic use (acidosis is likely an argument against); there is no suggestion of a congenital long QTc syndrome; would exclude stress/Tako-Tsubo cardiomyopathy She remains at a risk for torsade Plan Retrieve prior EKGs for QTC interval DC lasix unless an absolute indication Correct K Echo to exclude an apical cardiomyopathy Avoid QT stressors (medications electrolytes [email or web address]) Continue monitoring until QTc <500ms If QT>500 after eliminating known triggers would warrant further work up with a QT stress test Plan: See discussion above - Date & Time Date: 03/29/18 Time: 23:23
[2018-03-30 00:41] LABS: CALCIUM 9.5 mg/dl (8.6-10.4)
[2018-03-30] MEDS: Albuterol-Ipratrop 3 mg / 0.5 (3 ml) UD INH SCH ×2 (02:38→07:55)
[2018-03-30] MEDS: Levothyroxine 50 MCG TAB PO SCH (05:35)
--- NOTE | 2018-03-30 07:05 | CP.PCM.PN ---
<Zelalem Luz - Last Filed: 03/30/18 21:13> Subjective - Date & Time of Evaluation Date of Evaluation: 03/30/18 Time of Evaluation: 10:50 - Subjective Subjective: PGY-[address] Omer service Pt is seen and examined at bedside. Pt states feeling the same as yesterday. Pt complains of worsening cough with clear sputum. Pt says she continues to feel SOB when walking short distances. Pt has mild chest pressure and palpitations when walking around hospital. Pt denies Fever, chills, nausea, lightheadness, dizziness, vomiting, diarrhea or constipation. Objective - Vital Signs/Intake and Output Vital Signs (last 24 hours): Temp Pulse Resp BP Pulse Ox 97.9 F 69 20 122/76 95 03/30/18 05:05 03/30/18 05:05 03/30/18 05:05 03/30/18 05:05 03/30/18 05:05 Intake and Output: 03/30/18 03/30/18 06:59 18:59 Intake Total 350 Balance 350 - Medications Medications: Current Medications Albuterol/Ipratropium (Duoneb 3 Mg/0.5 Mg (3 Ml) Ud) 3 ml INH RQ6 [facility] Stop: 03/30/18 08:00 Last Admin: 03/30/18 02:38 Dose: Not Given Furosemide (Lasix) 20 mg IVP Q12H [facility] Last Admin: 03/29/18 22:04 Dose: 20 mg Heparin Sodium (Porcine) (Heparin) 5,000 units SC Q8 [facility] Last Admin: 03/30/18 05:22 Dose: 5,000 units Home Med (Febuxostat [Uloric]) 40 mg PO DAILY [facility] Levothyroxine Sodium (Synthroid) 50 mcg PO DAILY@0630 [facility] Last Admin: 03/30/18 05:35 Dose: 50 mcg Magnesium Oxide (Mag-Ox) 400 mg PO TID [facility] Stop: 04/01/18 10:01 Rosuvastatin Calcium (Crestor) 20 mg PO HS [facility] Last Admin: 03/29/18 22:04 Dose: 20 mg - Labs Labs: 03/29/18 02:02 03/30/18 00:25 PT 12.7 SECONDS (9.7-12.2) H 03/29/18 01:55 INR 1.2 03/29/18 01:55 APTT 29 SECONDS (21-34) 03/29/18 01:55 - Constitutional Appears: Well, Non-toxic, No Acute Distress - Head Exam Head Exam: ATRAUMATIC, NORMAL INSPECTION - Eye Exam Eye Exam: EOMI, Normal appearance - ENT Exam ENT Exam: Mucous Membranes Moist, Normal Exam, Normal Oropharynx - Neck Exam Neck Exam: Full ROM - Respiratory Exam Respiratory Exam: Clear to Ausculation Bilateral, NORMAL BREATHING PATTERN - Cardiovascular Exam Cardiovascular Exam: REGULAR RHYTHM, +S1, +S2 - GI/Abdominal Exam GI & Abdominal Exam: Soft, Normal Bowel Sounds - Extremities Exam Extremities Exam: Full ROM, Normal Inspection - Neurological Exam Neurological Exam: Alert, Awake, Oriented x3 - Psychiatric Exam Psychiatric exam: Normal Affect, Normal Mood - Skin Skin Exam: Intact, Normal Color Assessment and Plan - Assessment and Plan (Free Text) Plan: Pulmonary congestion secondary to Heart failure * 03/29: BNP 13,300 * pulmonary congestion improved with Lasix * Troponin x3: negative * CXR: bilateral lower lung consolidations * Echo: Normal EF, CHF with preserved EF * Cont Lasix, Imdur and hydralazine * O2 via nasal cannula, keep SpO2 > 92% * Daily weights * Monitor I &O * Head of bed 45 degrees Prolonged QT and ST T waves changes * Normal K and Mg levels * Prolonged QT still seen on repeat EKG * Cardio consulted * Meds: - Magnesium Oxide 400mg PO TID ENDY * Creatinine level: 1.6 to 2.4 today * Increased Cr due to IV lasix * Renal Ultrasound 03/30: Increased order collecting AC both kidneys compatible with medical renal disease. Nonobstructive right interpolar calculus measuring up to 0.7 cm * Dr Castelan consulted - allow dehydration, replete K, check proteinuria, repeat chemistries Hypokalemia * 40meq KCl + 20meq (in ED) given * 03/29: Potassium 3.2 * Continue to monitor * Meds: -Potassium chloride 10 meq in 100 mls 2 bags - K-Dur 40 meq PO once on 03/30 Gout * Hold tenoretic as it can cause hyperuricemia Hypothyroidism * Continue Synthroid 50mcg PO daily * TSH/Free T4: 4.40/2.1 Possible UTI * Urinalysis: 1+ protein, 2+ LE * Urine cx: f/u * Patient is asymptomatic, no treatment at this time. HTN * BP: 131/87 stable * Hold home medications: amlodipine (until completing echo) and Tenoretic (due to active CHF and acute on chronic renal failure) * Will not start a beta kelsy or perla/arb due to BUN/Cr, CKD4. * Can consider hydralazine/imdur after echo taken * Continue to monitor BP HLD * Lipid panel: Triglycerides: 150, Cholesterol 174, LDL 110 HDL 38 * cont Crestor 20mg PO HS Questionable hx of asthma? * Hold home medications * Duonebs Q6h til 8am on 03/30/18 * SOB possibly due to undiagnosed CHF? Prophylaxis: * Heart healthy 2gm Na low carb diet * DVT: risk score fo 4--> Heparin 5000u SC Q8, SCDs * GI: not indicated <Surya Omer - Last Filed: 03/31/18 13:15> Objective - Vital Signs/Intake and Output Vital Signs (last 24 hours): Temp Pulse Resp BP Pulse Ox 98.1 F 68 18 115/77 95 03/31/18 07:00 03/31/18 08:00 03/31/18 07:00 03/31/18 07:00 03/31/18 07:00 Intake and Output: 03/31/18 03/31/18 06:59 18:59 Output Total 300 Balance -300 - Medications Medications: Current Medications Heparin Sodium (Porcine) (Heparin) 5,000 units SC Q8 [facility] Last Admin: 03/31/18 05:36 Dose: 5,000 units Home Med (Patient's Own Medication) 1 tab PO DAILY [facility] Last Admin: 03/31/18 09:09 Dose: 1 tab Levothyroxine Sodium (Synthroid) 50 mcg PO DAILY@0630 [facility] Last Admin: 03/31/18 05:36 Dose: 50 mcg Magnesium Oxide (Mag-Ox) 400 mg PO TID [facility] Stop: 04/01/18 10:01 Last Admin: 03/31/18 09:10 Dose: 400 mg Potassium Chloride (K-Dur 20 Meq Er Tab) 40 meq PO BRK [facility] Last Admin: 03/31/18 09:10 Dose: 40 meq Rosuvastatin Calcium (Crestor) 20 mg PO HS [facility] Last Admin: 03/30/18 21:16 Dose: 20 mg - Labs Labs: 03/31/18 06:51 03/31/18 06:51 PT 12.7 SECONDS (9.7-12.2) H 03/29/18 01:55 INR 1.2 03/29/18 01:55 APTT 29 SECONDS (21-34) 03/29/18 01:55 Attending/Attestation - Attestation I have personally seen and examined this patient.: Yes I have fully participated in the care of the patient.: Yes I have reviewed all pertinent clinical information, including history, physical exam and plan: Yes Notes (Text): Patient was seen and examined by me No complain,feels ok,no sob lungs clear d/w DR Kaur . Her echo looks good.Planning for QT stress test by EP shop director at [facility] Her electrolytes are corrected . Her QTC is prolonged Plan discussed with the resident and the patient
[2018-03-30 07:51] LABS: BASO % 0.2 % (0.0-2.0); HEMOGLOBIN 14.2 g/dL (11.0-16.0); MEAN CELL VOLUME 83.8 fL (81.0-99.0); MEAN CORPUSCULAR HEMOGLOBIN 29.3 pg (27.0-31.0); MEAN PLATELET VOLUME 9.5 fL (7.2-11.7); MONO # 0.5 K/uL (0.0-0.8); MONO % 6.3 % (0.0-10.0); NEUT # 5.5 K/uL (1.8-7.0); NEUT % 68.5 % (50.0-75.0); RBC 4.84 Mil/uL (3.80-5.20); RED CELL DISTRIBUTION WIDTH 14.3 % (11.5-14.5)
[2018-03-30] MEDS ORDERED: Albuterol-Ipratrop 3 mg / 0.5 (3 ml) UD INH PRN (07:54)
[2018-03-30 08:18] LABS: ALB/GLOB RATIO 1.3 (1.0-2.1); ALBUMIN 4.2 g/dL (3.5-5.0); CALCIUM 9.2 mg/dl (8.6-10.4)
[2018-03-30] MEDS: Magnesium Oxide 400 mg Tab UD PO SCH ×3 (10:57→17:29)
--- NOTE | 2018-03-30 11:26 | CP.PCM.CON ---
History of Present Illness - History of Present Illness History of Present Illness: HPI: Patient is a 62 year old female with a history of HTN, HLD, hypothyroidism , CKD stage 3, gout, and newly diagnosed asthma, who presents with complaints of shortness of breath. Her symptoms originally started one year ago, has been worsening for the past 6 months, and were the worst since Thursday. She also admits to a cough, productive of white phlegm. She sleeps with 4 pillows and cannot walk more than 10 feet before becoming out of breath. She recently went to her escalator constructor, Dr. Lyons, who diagnosed her with asthma and prescribed several inhalers. Per her daughter at bedside, her mother recently came back from visiting her son and had been eating fried foods for the past week. Patient denies chest pain, abdominal pain, dyspnea, nausea, vomiting, fevers, headaches, vision changes, dizziness, dysuria, hematuria, changes in urinary stream, leg pain and leg swelling. Initially treated with lasix which le been stopped. Now creatinine increasing. PMD: Dr. Ellsworth Toll Transmission Worker: Dr. Mendoza Pulm: Dr. Lyons PMHx: HTN, HLD, hypothyroidism, CKD stage 3, gout, and newly diagnosed asthma SurgHx: tubal ligation 1982 FamHx: Mother-pancreatic and uterine cancer; mother with CKD SocHx: denies tobacco, alcohol, and drug use;currently lives with daughter in . lived with son and son's for two years who smoked 2+ packs per day. 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 Review of Systems - Constitutional Constitutional: Daytime Sleepiness, Weakness - EENT Eyes: absent: As Per HPI, Blind Spots, Blurred Vision, Change in Vision, Decreased Night Vision, Diplopia, Discharge, Dry Eye, Exophthalmos, Floaters, Irritation, Itchy Eyes, Loss of Peripheral Vision, Pain, Photophobia, Requires Corrective Lenses, Sees Flashes, Spots in Vision, Tunnel Vision, Other Visual Disturbances, Loss of Vision, Other Ears: absent: As Per HPI, Decreased Hearing, Ear Discharge, Ear Pain, Tinnitus, Abnormal Hearing, Disequilibrium, Dizziness, Other Nose/Mouth/Throat: absent: As Per HPI, Epistaxis, Nasal Congestion, Nasal Discharge, Nasal Obstruction, Nasal Trauma, Nose Pain, Post Nasal Drip, Sinus Pain, Sinus Pressure, Bleeding Gums, Change in Voice, Dental Pain, Dry Mouth, Dysphagia, Halitosis, Hoarsness, Lip Swelling, Mouth Lesions, Mouth Pain, Odynophagia, Sore Throat, Throat Swelling, Tongue Swelling, Facial Pain, Neck Pain, Neck Mass, Other - Cardiovascular Cardiovascular: Dyspnea on Exertion - Respiratory Respiratory: Cough, Dyspnea on Exertion - Gastrointestinal Gastrointestinal: absent: As Per HPI, Abdominal Pain, Belching, Bloating, Change in Bowel Habits, Change in Stool Character, Coffee Ground Emesis, Constipation, Cramping, Diarrhea, Dyspepsia, Dysphagia, Early Satiety, Excessive Flatus, Fecal Incontinence, Heartburn, Hematemesis, Hematochezia, Loose Stools, Melena, Nausea, Odynophagia, Temesmus, Vomiting, Other - Genitourinary Genitourinary: absent: As Per HPI, Change in Urinary Stream, Difficulty Urinating, Dysuria, Flank Pain, Hematuria, Pyuria, Nocturia, Urinary Incontinence, Urinary Frequency, Urinary Hesitance, Urinary Urgency, Voiding Freq/Small Amts, Freq UTI, Hx Renal/Bladder Calculi, Hx /Renal Surgery, Bladder Distension, Other - Musculoskeletal Musculoskeletal: Muscle Cramps, Muscle Weakness - Neurological Neurological: Weakness Past Patient History - Past Medical History & Family History Past Medical History?: Yes - Past Social History Smoking Status: Never Smoked Chewing Tobacco Use: No Cigar Use: No Alcohol: Occasional Drugs: Denies Home Situation {Lives}: With Family - CARDIAC Hx Hypercholesterolemia: Yes Hx Hypertension: Yes - PULMONARY Hx Asthma: Yes Hx Bronchitis: Yes - RENAL Hx Chronic Kidney Disease: Yes ("STAGE 3") Hx Dialysis: No - ENDOCRINE/METABOLIC Hx Hypothyroidism: Yes - MUSCULOSKELETAL/RHEUMATOLOGICAL Hx Gout: Yes - PSYCHIATRIC Hx Substance Use: No - SURGICAL HISTORY Hx Surgeries: No - ANESTHESIA Hx Anesthesia: No Meds Allergies/Adverse Reactions: Allergies Allergy/AdvReac Type Severity Reaction Status Date / Time shellfish derived Allergy Mild ITCHING Verified 03/29/18 08:40 - Medications Medications: Current Medications Heparin Sodium (Porcine) (Heparin) 5,000 units SC Q8 [facility] Last Admin: 03/30/18 05:22 Dose: 5,000 units Home Med (Patient's Own Medication) 1 tab PO DAILY [facility] Levothyroxine Sodium (Synthroid) 50 mcg PO DAILY@0630 [facility] Last Admin: 03/30/18 05:35 Dose: 50 mcg Magnesium Oxide (Mag-Ox) 400 mg PO TID [facility] Stop: 04/01/18 10:01 Last Admin: 03/30/18 10:57 Dose: 400 mg Rosuvastatin Calcium (Crestor) 20 mg PO HS [facility] Last Admin: 03/29/18 22:04 Dose: 20 mg Physical Exam - Head Exam Head Exam: ATRAUMATIC, NORMAL INSPECTION - Eye Exam Eye Exam: EOMI, Normal appearance - Neck Exam Neck exam: Positive for: Normal Inspection. Negative for: Tenderness - Respiratory Exam Respiratory Exam: Clear to Auscultation Bilateral, NORMAL BREATHING PATTERN - Cardiovascular Exam Cardiovascular Exam: REGULAR RHYTHM, +S1 - GI/Abdominal Exam GI & Abdominal Exam: Soft. absent: Tenderness - Extremities Exam Extremities exam: Positive for: normal inspection. Negative for: tenderness - Neurological Exam Neurological exam: Alert, CN II-XII Intact - Skin Skin Exam: Dry, Warm Results - Vital Signs Recent Vital Signs: Last Vital Signs Temp 97.6 F 03/30/18 07:00 Pulse 70 03/30/18 07:05 Resp 20 03/30/18 07:00 BP 101/69 03/30/18 07:00 Pulse Ox 96 03/30/18 07:00 - Labs Result Diagrams: 03/30/18 07:41 03/30/18 07:41 Labs: Laboratory Results - last 24 hr 03/29/18 03/29/18 03/29/18 06:12 17:05 17:32 WBC RBC Hgb Hct MCV MCH MCHC RDW Plt Count MPV Neut % (Auto) Lymph % (Auto) [place] % (Auto) Eos % (Auto) Baso % (Auto) Neut # (Auto) Lymph # (Auto) [place] # (Auto) Eos # (Auto) Baso # (Auto) Sodium 145 143 Potassium 3.2 L 3.3 L Chloride 105 104 Carbon Dioxide 20 L 21 L Anion Gap 23 H 22 H BUN 29 H 33 H Creatinine 1.6 H 2.5 H Est GFR ( Amer) 40 24 Est GFR (Non-Af Amer) 33 20 Random Glucose 125 H 108 H Calcium 9.1 9.4 Phosphorus 3.4 Magnesium 1.6 1.4 L Total Bilirubin 1.4 H AST 24 ALT 18 Alkaline Phosphatase 124 Troponin I 0.0500 Total Protein 7.6 Albumin 4.3 Globulin 3.3 Albumin/Globulin Ratio 1.3 Triglycerides Cholesterol LDL Cholesterol Direct HDL Cholesterol TSH 3rd Generation 4.40 03/30/18 03/30/18 03/30/18 00:25 07:41 07:41 WBC 8.0 RBC 4.84 Hgb 14.2 Hct 40.6 MCV 83.8 MCH 29.3 MCHC 35.0 RDW 14.3 Plt Count 154 MPV 9.5 Neut % (Auto) 68.5 Lymph % (Auto) 25.0 [place] % (Auto) 6.3 Eos % (Auto) 0.0 Baso % (Auto) 0.2 Neut # (Auto) 5.5 Lymph # (Auto) 2.0 [place] # (Auto) 0.5 Eos # (Auto) 0.0 Baso # (Auto) 0.0 Sodium 138 140 Potassium 3.8 3.9 Chloride 100 100 Carbon Dioxide 23 22 Anion Gap 19 22 H BUN 36 H 39 H Creatinine 2.4 H 2.4 H Est GFR ( Amer) 25 25 Est GFR (Non-Af Amer) 20 20 Random Glucose 120 H 121 H Calcium 9.5 9.2 Phosphorus Magnesium 2.1 Total Bilirubin 1.5 H AST 20 ALT 18 Alkaline Phosphatase 123 Troponin I Total Protein 7.4 Albumin 4.2 Globulin 3.2 Albumin/Globulin Ratio 1.3 Triglycerides 150 H Cholesterol 174 LDL Cholesterol Direct 110 HDL Cholesterol 38 TSH 3rd Generation Assessment & Plan (1) ENDY (acute kidney injury) Status: Acute (2) Dehydration Status: Acute - Assessment and Plan (Free Text) Assessment: Increase in creatinine likely due to diuretics- IV lasix given, was on thiazide diuretic as well Etiology cough unclear, no evidence of CHF Plan: allow rehydration replete K check proteinuria renal US repeat chemistries
[2018-03-30] MEDS: FEBUXOSTAT 40 MG PO SCH (12:34)
--- NOTE | 2018-03-30 17:13 | US ---
PROCEDURE: Ultrasound of the Kidneys HISTORY: emily COMPARISON: None available. TECHNIQUE: Sonogram of the kidneys. FINDINGS: RIGHT KIDNEY: Measures: 10.4 x 4.6 x 4.2 cm. Nonobstructive interpolar calculus measuring 0.7 x 0.4 x 0.5 cm. Increased echogenicity. Normal in size and contour. No solid mass lesion or hydronephrosis visualized. LEFT KIDNEY: Measures: 10.0 x 3.9 x 3.8 cm. Increased echogenicity. Normal in size and contour. No stone, solid mass lesion or hydronephrosis visualized. OTHER FINDINGS: None. IMPRESSION: Increased order collecting AC both kidneys compatible with medical renal disease. Nonobstructive right interpolar calculus measuring up to 0.7 cm.
[2018-03-30] MEDS ORDERED: Potassium Chloride 20 mEq ER Tab PO ONE (18:20)
--- NOTE | 2018-03-30 20:27 | CP.PCM.PN ---
Subjective - Date & Time of Evaluation Date of Evaluation: 03/30/18 Time of Evaluation: 15:35 - Subjective Subjective: Patient seen and evaluated Improved breathing Denies chest pain Review of Systems - Constitutional Constitutional: absent: Chills, Fever - EENT Eyes: absent: Blurred Vision Nose/Mouth/Throat: absent: Nasal Congestion, Sore Throat - Cardiovascular Cardiovascular: Dyspnea, Dyspnea on Exertion. absent: Leg Edema, Palpitations - Respiratory Respiratory: Dyspnea, Dyspnea on Exertion - Gastrointestinal Gastrointestinal: absent: Abdominal Pain, Constipation, Diarrhea, Nausea, Vomiting - Genitourinary Genitourinary: absent: Dysuria, Hematuria - Musculoskeletal Musculoskeletal: absent: Numbness, Stiffness, Tingling - Integumentary Integumentary: absent: Rash Physical Exam - Constitutional Appears: Non-toxic, No Acute Distress - Head Exam Head Exam: ATRAUMATIC, NORMAL INSPECTION, NORMOCEPHALIC - Eye Exam Eye Exam: EOMI, Normal appearance - ENT Exam ENT Exam: Mucous Membranes Moist - Respiratory Exam Respiratory Exam: Clear to Auscultation Bilateral, NORMAL BREATHING PATTERN - Cardiovascular Exam Cardiovascular Exam: REGULAR RHYTHM, RRR, +S1, +S2 - GI/Abdominal Exam GI & Abdominal Exam: Normal Bowel Sounds, Soft. absent: Distended - Extremities Exam Extremities exam: Positive for: normal inspection. Negative for: tenderness Additional comments: trace pedal edema - Neurological Exam Neurological exam: Alert, Oriented x3 - Psychiatric Exam Psychiatric exam: Normal Affect, Normal Mood - Skin Skin Exam: Intact, Normal Color, Warm Objective - Vital Signs/Intake and Output Vital Signs (last 24 hours): Temp Pulse Resp BP Pulse Ox 97.7 F 88 20 131/87 98 03/30/18 15:32 03/30/18 16:18 03/30/18 15:32 03/30/18 15:32 03/30/18 15:32 Intake and Output: 03/30/18 03/31/18 18:59 06:59 Intake Total 350 Balance 350 - Medications Medications: Current Medications Heparin Sodium (Porcine) (Heparin) 5,000 units SC Q8 [facility] Last Admin: 03/30/18 13:59 Dose: 5,000 units Home Med (Patient's Own Medication) 1 tab PO DAILY [facility] Last Admin: 03/30/18 12:34 Dose: 1 tab Levothyroxine Sodium (Synthroid) 50 mcg PO DAILY@0630 [facility] Last Admin: 03/30/18 05:35 Dose: 50 mcg Magnesium Oxide (Mag-Ox) 400 mg PO TID [facility] Stop: 04/01/18 10:01 Last Admin: 03/30/18 17:29 Dose: 400 mg Rosuvastatin Calcium (Crestor) 20 mg PO [facility] Last Admin: 03/29/18 22:04 Dose: 20 mg - Labs Labs: 03/30/18 07:41 03/30/18 07:41 PT 12.7 SECONDS (9.7-12.2) H 03/29/18 01:55 INR 1.2 03/29/18 01:55 APTT 29 SECONDS (21-34) 03/29/18 01:55 Assessment and Plan - Assessment and Plan (Free Text) Assessment: Prolonged QT Today normal K and Mag levels Patient still has prolonged QT Further mgt as per Dr. Russ Pulmonary congestion secondary to heart failure ECHO: Normal EF CHF with preserved EF * Daily weights * Monitor intake & output * Head of bed 45deg * Echo: f/u * Troponin negative x 3 * BNP 13,300 * Medications: * Duonebs Q6h x 24 hrs until 8am 03/30/18 * O2 via nasal cannula, keep SpO2 > 92% * Lasix 20mg IV Q12h HTN * Hold home medications: amlodipine (until completing echo) and Tenoretic (due to active CHF and acute on chronic renal failure) * Will not start a beta kelsy or perla/arb due to BUN/Cr, CKD4. * Can consider hydralazine/imdur after echo taken * Continue to monitor
--- NOTE | 2018-03-30 23:27 | CARD ---
APPROVED REPORT EKG Measurement Heart [id number] IN [id number] [id number] <Conclusion> Normal sinus rhythm ST & Marked T wave abnormality, consider anterolateral ischemia Prolonged QT Abnormal ECG
--- NOTE | 2018-03-30 23:49 | CARD ---
APPROVED REPORT EKG Measurement Heart [id number] PA [id number] [id number] <Conclusion> Normal sinus rhythm Possible Left atrial enlargement ST & Marked T wave abnormality, consider anterolateral ischemia Prolonged QT Abnormal ECG
[2018-03-31] MEDS: Levothyroxine 50 MCG TAB PO SCH (05:36)
[2018-03-31 07:01] LABS: BASO % 0.3 % (0.0-2.0); HEMOGLOBIN 13.3 g/dL (11.0-16.0); LYMPH % 35.8 % (20.0-40.0); MEAN CELL VOLUME 82.9 fL (81.0-99.0); MEAN CORPUSCULAR HEMOGLOBIN 28.7 pg (27.0-31.0); MEAN CORPUSCULAR HGB CONC 34.6 g/dL (33.0-37.0); MEAN PLATELET VOLUME 9.1 fL (7.2-11.7); MONO # 0.6 K/uL (0.0-0.8); MONO % 9.7 % (0.0-10.0); NEUT # 3.1 K/uL (1.8-7.0); NEUT % 54.2 % (50.0-75.0); RBC 4.64 Mil/uL (3.80-5.20); WHITE BLOOD COUNT 5.7 K/uL (4.8-10.8)
[2018-03-31 07:51] LABS: ALB/GLOB RATIO 1.3 (1.0-2.1); ALBUMIN 4.1 g/dL (3.5-5.0); CALCIUM 9.3 mg/dl (8.6-10.4)
--- NOTE | 2018-03-31 09:07 | CP.PCM.PN ---
Subjective - Date & Time of Evaluation Date of Evaluation: 03/31/18 Time of Evaluation: 09:05 - Subjective Subjective: feels better not dyspneic now creat sl better at 2.2; K still low BP controlled renal US consistent with CKD proteinuria being quantified Objective - Vital Signs/Intake and Output Vital Signs (last 24 hours): Temp Pulse Resp BP Pulse Ox 98.1 F 69 18 115/77 95 03/31/18 07:00 03/31/18 07:00 03/31/18 07:00 03/31/18 07:00 03/31/18 07:00 Intake and Output: 03/31/18 03/31/18 06:59 18:59 Output Total 300 Balance -300 - Medications Medications: Current Medications Heparin Sodium (Porcine) (Heparin) 5,000 units SC Q8 [facility] Last Admin: 03/31/18 05:36 Dose: 5,000 units Home Med (Patient's Own Medication) 1 tab PO DAILY [facility] Last Admin: 03/30/18 12:34 Dose: 1 tab Levothyroxine Sodium (Synthroid) 50 mcg PO DAILY@0630 [facility] Last Admin: 03/31/18 05:36 Dose: 50 mcg Magnesium Oxide (Mag-Ox) 400 mg PO TID [facility] Stop: 04/01/18 10:01 Last Admin: 03/30/18 17:29 Dose: 400 mg Potassium Chloride (K-Dur 20 Meq Er Tab) 40 meq PO BRK [facility] Rosuvastatin Calcium (Crestor) 20 mg PO HS [facility] Last Admin: 03/30/18 21:16 Dose: 20 mg - Labs Labs: 03/31/18 06:51 03/31/18 06:51 PT 12.7 SECONDS (9.7-12.2) H 03/29/18 01:55 INR 1.2 03/29/18 01:55 APTT 29 SECONDS (21-34) 03/29/18 01:55 - Constitutional Appears: No Acute Distress, Chronically Ill - Head Exam Head Exam: ATRAUMATIC, NORMAL INSPECTION - Eye Exam Eye Exam: EOMI, Normal appearance - Neck Exam Neck Exam: Normal Inspection. absent: Tenderness - Respiratory Exam Respiratory Exam: Clear to Ausculation Bilateral, NORMAL BREATHING PATTERN - Cardiovascular Exam Cardiovascular Exam: REGULAR RHYTHM, +S1 - GI/Abdominal Exam GI & Abdominal Exam: Soft. absent: Tenderness - Extremities Exam Extremities Exam: Normal Inspection. absent: Tenderness - Neurological Exam Neurological Exam: Alert, CN II-XII Intact - Skin Skin Exam: Dry, Warm Assessment and Plan (1) ENDY (acute kidney injury) Status: Acute (2) Dehydration Status: Acute - Assessment and Plan (Free Text) Plan: avoid diuretics monitor renal function, lytes check abhijeet, renin
[2018-03-31] MEDS: FEBUXOSTAT 40 MG PO SCH (09:09)
[2018-03-31] MEDS: Potassium Chloride 20 mEq ER Tab PO SCH (09:10)
[2018-03-31] MEDS: Magnesium Oxide 400 mg Tab UD PO SCH ×3 (09:10→17:22)
--- NOTE | 2018-03-31 10:12 | CARD ---
APPROVED REPORT EXAM: Two-dimensional and M-mode echocardiogram with Doppler and color Doppler. Other Information Quality : GoodRhythm : INDICATION Dyspnea Congestive Heart Failure 2D DIMENSIONS IVSd1.3 (0.7-1.1cm)LVDd3.8 (3.9-5.9cm) PWd1.4 (0.7-1.1cm)LVDs2.0 (2.5-4.0cm) FS (%) 47.4 %LVEF (%)79.5 (>50%) M-Mode DIMENSIONS RVDd3.47 (2.1-3.2cm)Left Atrium (MM)3.41 (2.5-4.0cm) IVSd1.14 (0.7-1.1cm)Aortic Root3.09 (2.2-3.7cm) LVDd4.13 (4.0-5.6cm)Aortic Cusp Exc.1.96 (1.5-2.0cm) PWd1.00 (0.7-1.1cm)FS (%) 44 % LVDs2.32 (2.0-3.8cm)LVEF (%)75 (>50%) Mitral Valve MV E Iglfpvvj35.9cm/sMV A Nolirwdw11.9cm/sE/A ratio0.5 TDI E/Lateral E'0.0E/Medial E'0.0 Tricuspid Valve TR Peak Ttysvxpt059mr/sTR Peak Gr.58flEnDRLS57gjPu LEFT VENTRICLE The left ventricle is normal size. There is mild concentric left ventricular hypertrophy. Left ventricle systolic function is normal. The Ejection Fraction is >70%. There is normal LV segmental wall motion. Tissue Doppler imaging reveals abnormal left ventricular diastolic dysfunction. RIGHT VENTRICLE The right ventricle is normal size. There is normal right ventricular wall thickness. The right ventricular systolic function is normal. ATRIA The left atrium size is normal. The right atrium size is normal. The interatrial septum is intact with no evidence for an atrial septal defect. AORTIC VALVE The aortic valve is normal in structure. No aortic regurgitation is present. There is no aortic valvular stenosis. There is no aortic valvular vegetation. MITRAL VALVE The mitral valve is normal in structure. There is no evidence of mitral valve prolapse. There is no mitral valve stenosis. Mitral regurgitation is trace. TRICUSPID VALVE The tricuspid valve is normal in structure. There is mild tricuspid regurgitation. Right ventricular systolic pressure is estimated at 30-40 mmHg. There is mild pulmonary hypertension. PULMONIC VALVE The pulmonic valve is not well visualized. There is mild pulmonic valvular regurgitation. GREAT VESSELS The aortic root is normal in size. PERICARDIAL EFFUSION There is no significant pericardial effusion. <Conclusion> Left ventricle systolic function is normal. The Ejection Fraction is >70%. Hypertensive heart disease. Diastolic dysfunction. No aortic regurgitation is present. Mitral regurgitation is trace. There is mild tricuspid regurgitation. There is mild pulmonary hypertension. There is mild pulmonic valvular regurgitation.
--- NOTE | 2018-03-31 11:12 | CP.PCM.PN ---
<Bhaskar Sanchez - Last Filed: 03/31/18 15:34> Subjective - Date & Time of Evaluation Date of Evaluation: 03/31/18 Time of Evaluation: 09:58 - Subjective Subjective: PGY2 Medicine Note for Dr. Omer Patient seen and examined at bedside this morning. No acute events overnight. Patient is resting comfortably in bed with family at bedside. Patient is currently feeling well. She needed to request that her oxygen be increased because she was still feeling short of breath. She is now resting comfortably, speaking in full sentences. Patient has complaints at this time. Denies fevers, chills, nausea, vomiting, diarrhea, constipation, chest pain, palpitations or vision changes. Objective - Vital Signs/Intake and Output Vital Signs (last 24 hours): Temp Pulse Resp BP Pulse Ox 98.1 F 69 18 115/77 95 03/31/18 07:00 03/31/18 07:00 03/31/18 07:00 03/31/18 07:00 03/31/18 07:00 Intake and Output: 03/31/18 03/31/18 06:59 18:59 Output Total 300 Balance -300 - Medications Medications: Current Medications Heparin Sodium (Porcine) (Heparin) 5,000 units SC Q8 [facility] Last Admin: 03/31/18 05:36 Dose: 5,000 units Home Med (Patient's Own Medication) 1 tab PO DAILY [facility] Last Admin: 03/31/18 09:09 Dose: 1 tab Levothyroxine Sodium (Synthroid) 50 mcg PO DAILY@0630 [facility] Last Admin: 03/31/18 05:36 Dose: 50 mcg Magnesium Oxide (Mag-Ox) 400 mg PO TID [facility] Stop: 04/01/18 10:01 Last Admin: 03/31/18 09:10 Dose: 400 mg Potassium Chloride (K-Dur 20 Meq Er Tab) 40 meq PO BRK [facility] Last Admin: 03/31/18 09:10 Dose: 40 meq Rosuvastatin Calcium (Crestor) 20 mg PO HS [facility] Last Admin: 03/30/18 21:16 Dose: 20 mg - Labs Labs: 03/31/18 06:51 03/31/18 06:51 PT 12.7 SECONDS (9.7-12.2) H 03/29/18 01:55 INR 1.2 03/29/18 01:55 APTT 29 SECONDS (21-34) 03/29/18 01:55 - Constitutional Appears: Non-toxic, No Acute Distress - Head Exam Head Exam: ATRAUMATIC - Eye Exam Eye Exam: EOMI, Normal appearance - ENT Exam ENT Exam: Mucous Membranes Moist - Neck Exam Neck Exam: absent: Lymphadenopathy - Respiratory Exam Respiratory Exam: NORMAL BREATHING PATTERN. absent: Chest Wall Tenderness, Rales, Rhonchi, Wheezes, Respiratory Distress - Cardiovascular Exam Cardiovascular Exam: REGULAR RHYTHM, +S1, +S2 - GI/Abdominal Exam GI & Abdominal Exam: Soft. absent: Distended, Firm, Guarding, Rigid, Tenderness - Extremities Exam Extremities Exam: Pedal Edema (trace pitting b/l). absent: Calf Tenderness - Neurological Exam Neurological Exam: Alert, Awake, Oriented x3 - Psychiatric Exam Psychiatric exam: Normal Affect, Normal Mood - Skin Skin Exam: Dry, Warm Assessment and Plan - Assessment and Plan (Free Text) Plan: Acute Diastolic Heart Failure * upon admission on 03/29: BNP 13,300 * pulmonary congestion improved with Lasix * Troponin x3: negative * CXR: bilateral lower lung consolidations * Echo: EF ~70%, Diastolic dysfunction, no AR, trace MR, mild TR, mild pulm HTN , mild PV regurg. * Discontinued Lasix, Imdur and hydralazine * O2 via nasal cannula, keep SpO2 > 92% * Daily weights * Monitor I &O * Head of bed 45 degrees Prolonged QT and ST T waves changes * Normal K and Mg levels * Prolonged QT still seen on repeat EKG * Cardio consulted, Dr. 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 This will be set up by Dr. Kaur. It was explain to patient that she needs to continue to be monitored due to the electrical system of her heart. Patient will remain on telemetry until further notice. Patient's family was at bedside. They were given the opportunity for questions which were answered. Patient/ family did not have any remaining questions at this time. ENDY * Creatinine level: 2.4 to 2.2 today * Renal Ultrasound 03/30: Increased order collecting AC both kidneys compatible with medical renal disease. Nonobstructive right interpolar calculus measuring up to 0.7 cm * Dr Castelan consulted - allow dehydration, replete K, check proteinuria, repeat chemistries Hypokalemia * 03/31: Potassium 3.3 * Started on Potassium 40 meq PO with breakfast by cardio * Repleted * Continue to monitor Gout * Hold tenoretic as it can cause hyperuricemia Hypothyroidism * Continue Synthroid 50mcg PO daily * TSH/Free T4: 4.40/2.1 Possible UTI * Urinalysis: 1+ protein, 2+ LE * Urine cx: negative * Patient is asymptomatic, no treatment at this time. HTN * BP: 115/77 stable * Hold home medications: amlodipine (until completing echo) and Tenoretic (due to active CHF and acute on chronic renal failure) * Will not start a beta kelsy or perla/arb due to BUN/Cr, CKD4. * Can consider hydralazine/imdur after echo taken * Continue to monitor BP HLD * Lipid panel: Triglycerides: 150, Cholesterol 174, LDL 110 HDL 38 * cont Crestor 20mg PO HS Prophylaxis: * Heart healthy 2gm Na low carb diet * DVT: risk score fo 4--> Heparin 5000u SC Q8, [facility] * GI: not indicated Case discussed with Dr. Negra Muro Daniel PGY2 <Surya Omer - Last Filed: 03/31/18 18:49> Objective - Vital Signs/Intake and Output Vital Signs (last 24 hours): Temp Pulse Resp BP Pulse Ox 98.0 F 88 20 113/72 95 03/31/18 16:11 03/31/18 16:11 03/31/18 16:11 03/31/18 16:11 03/31/18 16:11 Intake and Output: 03/31/18 03/31/18 06:59 18:59 Output Total 300 Balance -300 - Medications Medications: Current Medications Heparin Sodium (Porcine) (Heparin) 5,000 units SC Q8 [facility] Last Admin: 03/31/18 14:29 Dose: 5,000 units Home Med (Patient's Own Medication) 1 tab PO DAILY [facility] Last Admin: 03/31/18 09:09 Dose: 1 tab Levothyroxine Sodium (Synthroid) 50 mcg PO DAILY@0630 [facility] Last Admin: 03/31/18 05:36 Dose: 50 mcg Magnesium Oxide (Mag-Ox) 400 mg PO TID [facility] Stop: 04/01/18 10:01 Last Admin: 03/31/18 17:22 Dose: 400 mg Potassium Chloride (K-Dur 20 Meq Er Tab) 40 meq PO BRK [facility] Last Admin: 03/31/18 09:10 Dose: 40 meq Rosuvastatin Calcium (Crestor) 20 mg PO HS [facility] Last Admin: 03/30/18 21:16 Dose: 20 mg - Labs Labs: 03/31/18 06:51 03/31/18 06:51 PT 12.7 SECONDS (9.7-12.2) H 03/29/18 01:55 INR 1.2 03/29/18 01:55 APTT 29 SECONDS (21-34) 03/29/18 01:55 Attending/Attestation - Attestation I have personally seen and examined this patient.: Yes I have fully participated in the care of the patient.: Yes I have reviewed all pertinent clinical information, including history, physical exam and plan: Yes Notes (Text): Seen and examined by me,no complain Lungs clear Pending QT stress test follow with 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
[2018-03-31 14:51] LABS: URINE COLLECTION TIME 24 HRS; URINE TOTAL VOLUME 675 mL
[2018-03-31 15:05] LABS: SQUAMOUS EPITHIAL 5 /hpf (0-5); URINE BACTERIA RARE (<OCC); URINE BILIRUBIN NEGATIVE (NEGATIVE); URINE BLOOD 1+ (NEGATIVE); URINE CLARITY Clear (Clear); URINE COLOR Yellow (YELLOW); URINE GLUCOSE (UA) NORMAL (Normal); URINE HYALINE CAST 0-2 /lpf (0-2); URINE LEUKOCYTE ESTERASE 3+ Leu/uL (Negative); URINE PROTEIN NEGATIVE (NEGATIVE); URINE UROBILINOGEN NORMAL mg/dL (0.2-1.0)
[2018-03-31 15:15] LABS: URINE 24 HOUR TOTAL PROTEIN 67.5 mg/24hr (42-225)
[2018-04-01] MEDS: Levothyroxine 50 MCG TAB PO SCH (05:31)
[2018-04-01] MEDS: Potassium Chloride 20 mEq ER Tab PO SCH (08:21)
[2018-04-01 08:24] LABS: ALB/GLOB RATIO 1.3 (1.0-2.1); ALBUMIN 4.1 g/dL (3.5-5.0); CALCIUM 9.3 mg/dl (8.6-10.4)
--- NOTE | 2018-04-01 09:44 | CP.PCM.PN ---
Subjective - Date & Time of Evaluation Date of Evaluation: 04/01/18 Time of Evaluation: 09:41 - Subjective Subjective: PGY-[address] Omer service Objective - Vital Signs/Intake and Output Vital Signs (last 24 hours): Temp Pulse Resp BP Pulse Ox 98.0 F 69 18 110/73 95 04/01/18 08:00 04/01/18 08:00 04/01/18 08:00 04/01/18 08:00 04/01/18 08:00 - Medications Medications: Current Medications Heparin Sodium (Porcine) (Heparin) 5,000 units SC Q8 [facility] Last Admin: 04/01/18 05:31 Dose: 5,000 units Home Med (Patient's Own Medication) 1 tab PO DAILY [facility] Last Admin: 03/31/18 09:09 Dose: 1 tab Levothyroxine Sodium (Synthroid) 50 mcg PO DAILY@0630 [facility] Last Admin: 04/01/18 05:31 Dose: 50 mcg Magnesium Oxide (Mag-Ox) 400 mg PO TID [facility] Stop: 04/01/18 10:01 Last Admin: 03/31/18 17:22 Dose: 400 mg Potassium Chloride (K-Dur 20 Meq Er Tab) 40 meq PO BRK [facility] Last Admin: 04/01/18 08:21 Dose: 40 meq Rosuvastatin Calcium (Crestor) 20 mg PO HS [facility] Last Admin: 03/31/18 21:00 Dose: 20 mg - Labs Labs: 03/31/18 06:51 04/01/18 07:15 PT 12.7 SECONDS (9.7-12.2) H 03/29/18 01:55 INR 1.2 03/29/18 01:55 APTT 29 SECONDS (21-34) 03/29/18 01:55
--- NOTE | 2018-04-01 09:47 | CP.PCM.PN ---
Subjective - Date & Time of Evaluation Date of Evaluation: 04/01/18 Time of Evaluation: 09:44 - Subjective Subjective: alert, still with WELLS, but better HTN controlled urine protein excretion minimal creat slowly decraesing Urine Na <5- consistent with relative volume depletion Objective - Vital Signs/Intake and Output Vital Signs (last 24 hours): Temp Pulse Resp BP Pulse Ox 98.0 F 69 18 110/73 95 04/01/18 08:00 04/01/18 08:00 04/01/18 08:00 04/01/18 08:00 04/01/18 08:00 - Medications Medications: Current Medications Heparin Sodium (Porcine) (Heparin) 5,000 units SC Q8 [facility] Last Admin: 04/01/18 05:31 Dose: 5,000 units Home Med (Patient's Own Medication) 1 tab PO DAILY [facility] Last Admin: 03/31/18 09:09 Dose: 1 tab Levothyroxine Sodium (Synthroid) 50 mcg PO DAILY@0630 [facility] Last Admin: 04/01/18 05:31 Dose: 50 mcg Magnesium Oxide (Mag-Ox) 400 mg PO TID [facility] Stop: 04/01/18 10:01 Last Admin: 03/31/18 17:22 Dose: 400 mg Potassium Chloride (K-Dur 20 Meq Er Tab) 40 meq PO BRK [facility] Last Admin: 04/01/18 08:21 Dose: 40 meq Rosuvastatin Calcium (Crestor) 20 mg PO HS [facility] Last Admin: 03/31/18 21:00 Dose: 20 mg - Labs Labs: 03/31/18 06:51 04/01/18 07:15 PT 12.7 SECONDS (9.7-12.2) H 03/29/18 01:55 INR 1.2 03/29/18 01:55 APTT 29 SECONDS (21-34) 03/29/18 01:55 - Constitutional Appears: No Acute Distress, Chronically Ill - Head Exam Head Exam: ATRAUMATIC, NORMAL INSPECTION - Eye Exam Eye Exam: EOMI, Normal appearance - Neck Exam Neck Exam: Normal Inspection. absent: Tenderness - Respiratory Exam Respiratory Exam: Clear to Ausculation Bilateral, NORMAL BREATHING PATTERN - Cardiovascular Exam Cardiovascular Exam: REGULAR RHYTHM, +S1 - GI/Abdominal Exam GI & Abdominal Exam: Soft. absent: Tenderness - Extremities Exam Extremities Exam: Normal Inspection. absent: Tenderness - Neurological Exam Neurological Exam: Alert, CN II-XII Intact - Skin Skin Exam: Dry, Warm Assessment and Plan (1) ENDY (acute kidney injury) Status: Acute (2) Dehydration Status: Acute - Assessment and Plan (Free Text) Plan: encourage increase fluid intake likely for EST monitor BP, avoid DULCE I
[2018-04-01] MEDS: Magnesium Oxide 400 mg Tab UD PO SCH (09:58)
[2018-04-01] MEDS: FEBUXOSTAT 40 MG PO SCH (09:59)
--- NOTE | 2018-04-01 13:27 | CP.PCM.PN ---
<Caitlyn Cole - Last Filed: 04/01/18 13:23> Subjective - Date & Time of Evaluation Date of Evaluation: 04/01/18 Time of Evaluation: 11:00 - Subjective Subjective: PGY2- Progress Note for Dr. Kaur Patient seen and examined at bedside and in no acute distress. Patient is having improved breathing. Patient denies chest pain. Objective - Vital Signs/Intake and Output Vital Signs (last 24 hours): Temp Pulse Resp BP Pulse Ox 98.0 F 69 18 110/73 95 04/01/18 08:00 04/01/18 08:00 04/01/18 08:00 04/01/18 08:00 04/01/18 08:00 - Medications Medications: Current Medications Heparin Sodium (Porcine) (Heparin) 5,000 units SC Q8 [facility] Last Admin: 04/01/18 05:31 Dose: 5,000 units Home Med (Patient's Own Medication) 1 tab PO DAILY [facility] Last Admin: 04/01/18 09:59 Dose: 1 tab Levothyroxine Sodium (Synthroid) 50 mcg PO DAILY@0630 [facility] Last Admin: 04/01/18 05:31 Dose: 50 mcg Potassium Chloride (K-Dur 20 Meq Er Tab) 40 meq PO BRK [facility] Last Admin: 04/01/18 08:21 Dose: 40 meq Rosuvastatin Calcium (Crestor) 20 mg PO HS [facility] Last Admin: 03/31/18 21:00 Dose: 20 mg - Labs Labs: 03/31/18 06:51 04/01/18 07:15 PT 12.7 SECONDS (9.7-12.2) H 03/29/18 01:55 INR 1.2 03/29/18 01:55 APTT 29 SECONDS (21-34) 03/29/18 01:55 - Constitutional Appears: Non-toxic, No Acute Distress - Head Exam Head Exam: ATRAUMATIC, NORMAL INSPECTION, NORMOCEPHALIC - Eye Exam Eye Exam: EOMI, Normal appearance - ENT Exam ENT Exam: Mucous Membranes Moist - Neck Exam Neck Exam: Full ROM. absent: Tenderness - Respiratory Exam Respiratory Exam: Clear to Ausculation Bilateral, NORMAL BREATHING PATTERN. absent: Rales, Rhonchi, Wheezes, Respiratory Distress, Stridor - Cardiovascular Exam Cardiovascular Exam: REGULAR RHYTHM, RRR, +S1, +S2 - GI/Abdominal Exam GI & Abdominal Exam: Soft, Normal Bowel Sounds. absent: Tenderness - Extremities Exam Extremities Exam: Full ROM, Normal Inspection, Pedal Edema (trace pitting edema , improving ). absent: Tenderness - Back Exam Back Exam: NORMAL INSPECTION - Neurological Exam Neurological Exam: Alert, Awake, Oriented x3 - Psychiatric Exam Psychiatric exam: Normal Affect, Normal Mood - Skin Skin Exam: Intact, Normal Color, Warm Assessment and Plan - Assessment and Plan (Free Text) Assessment: Acute Diastolic Heart Failure * upon admission on 03/29: BNP 13,300 * pulmonary congestion improved with Lasix * Troponin x3: negative * CXR: bilateral lower lung consolidations * Echo: EF ~70%, Diastolic dysfunction, no AR, trace MR, mild TR, mild pulm HTN , mild PV regurg. * Discontinued Lasix, Imdur and hydralazine * O2 via nasal cannula, keep SpO2 > 92% * Daily weights * Monitor I &O * Head of bed 45 degrees Prolonged QT and ST T waves changes, resolving * Normal K and Mg levels * Prolonged QT resolved on EKG * patient will need an outpatient stress test and should follow up with Dr. Kaur in 1 month * patient to Not take Clorthalidone as an outpatient ENDY * BUN/Cr: 43/2.1 * Dr. Giron consulted, help appreciated Dispo: patient stable from a cardiac standpoint Discussed with Dr. Kaur <Truman Kaur - Last Filed: 04/02/18 00:11> Objective - Vital Signs/Intake and Output Vital Signs (last 24 hours): Temp Pulse Resp BP Pulse Ox 98.2 F 85 20 117/75 93 L 04/01/18 15:00 04/01/18 16:00 04/01/18 15:00 04/01/18 15:00 04/01/18 15:00 - Labs Labs: 03/31/18 06:51 04/01/18 07:15 PT 12.7 SECONDS (9.7-12.2) H 03/29/18 01:55 INR 1.2 03/29/18 01:55 APTT 29 SECONDS (21-34) 03/29/18 01:55 Assessment and Plan - Assessment and Plan (Free Text) Plan: Patient seen and evaluated personally by sc Plan of care d/w the medical communication specialist and as documented
--- NOTE | 2018-04-01 14:15 | CP.PCM.DIS ---
Provider - Provider Date of Admission: 03/29/18 03:33 Attending physician: Surya Omer MD Time Spent in preparation of Discharge (in minutes): 35 Hospital Course - Lab Results Lab Results: Micro Results 03/29/18 03:59 Urine,Clean Catch Urine Culture - Final No Growth (<1,000 CFU/ML) Most Recent Lab Values WBC 5.7 K/uL (4.8-10.8) 03/31/18 06:51 RBC 4.64 Mil/uL (3.80-5.20) 03/31/18 06:51 Hgb 13.3 g/dL (11.0-16.0) 03/31/18 06:51 Hct 38.5 % (34.0-47.0) 03/31/18 06:51 MCV 82.9 fL (81.0-99.0) 03/31/18 06:51 MCH 28.7 pg (27.0-31.0) 03/31/18 06:51 MCHC 34.6 g/dL (33.0-37.0) 03/31/18 06:51 RDW 14.0 % (11.5-14.5) 03/31/18 06:51 Plt Count 146 K/uL (130-400) 03/31/18 06:51 MPV 9.1 fL (7.2-11.7) 03/31/18 06:51 Neut % (Auto) 54.2 % (50.0-75.0) 03/31/18 06:51 Lymph % (Auto) 35.8 % (20.0-40.0) 03/31/18 06:51 [place] % (Auto) 9.7 % (0.0-10.0) 03/31/18 06:51 Eos % (Auto) 0.0 % (0.0-4.0) 03/31/18 06:51 Baso % (Auto) 0.3 % (0.0-2.0) 03/31/18 06:51 Neut # (Auto) 3.1 K/uL (1.8-7.0) 03/31/18 06:51 Lymph # (Auto) 2.0 K/uL (1.0-4.3) 03/31/18 06:51 [place] # (Auto) 0.6 K/uL (0.0-0.8) 03/31/18 06:51 Eos # (Auto) 0.0 K/uL (0.0-0.7) 03/31/18 06:51 Baso # (Auto) 0.0 K/uL (0.0-0.2) 03/31/18 06:51 PT 12.7 SECONDS (9.7-12.2) H 03/29/18 01:55 INR 1.2 03/29/18 01:55 APTT 29 SECONDS (21-34) 03/29/18 01:55 Puncture Site Rradial 03/29/18 02:05 pCO2 24 mm/Hg (35-45) L 03/29/18 02:05 pO2 58 mm/Hg (80-100) L 03/29/18 02:05 HCO3 22.2 mmol/L (21-28) 03/29/18 02:05 ABG pH 7.49 (7.35-7.45) H 03/29/18 02:05 ABG Total CO2 19.0 mmol/L (22-28) L 03/29/18 02:05 ABG O2 Saturation 93.0 % (95-98) L 03/29/18 02:05 ABG Base Excess -3.3 mmol/L (-2.0-3.0) L 03/29/18 02:05 Tre Test Pos 03/29/18 02:05 ABG Potassium 2.5 mmol/L (3.6-5.2) L* 03/29/18 02:05 Sodium 144.0 mmol/l (132-148) 03/29/18 02:05 Chloride 110.0 mmol/L (98-107) H 03/29/18 02:05 Glucose 107 mg/dl (65-105) H 03/29/18 02:05 Lactate 2.3 mmol/L (0.7-2.1) H 03/29/18 02:05 Liter Flow 3.0 03/29/18 02:05 Crit Value Called To 03/29/18 02:05 Crit Value Called By Laura adair rcp 03/29/18 02:05 Crit Value Read Back Y 03/29/18 02:05 Blood Gas Notified Time 216 03/29/18 02:05 Sodium 138 mmol/L (132-148) 04/01/18 07:15 Potassium 4.2 mmol/L (3.6-5.2) 04/01/18 07:15 Chloride 99 mmol/L (98-107) 04/01/18 07:15 Carbon Dioxide 26 mmol/L (22-30) 04/01/18 07:15 Anion Gap 17 (10-20) 04/01/18 07:15 BUN 43 mg/dL (7-17) H 04/01/18 07:15 Creatinine 2.1 mg/dL (0.7-1.2) H 04/01/18 07:15 Est GFR ( Amer) 29 04/01/18 07:15 Est GFR (Non-Af Amer) 24 04/01/18 07:15 Random Glucose 101 mg/dL (65-105) 04/01/18 07:15 Calcium 9.3 mg/dl (8.6-10.4) 04/01/18 07:15 Phosphorus 3.8 mg/dL (2.5-4.5) 04/01/18 07:15 Magnesium 2.6 mg/dL (1.6-2.3) H 04/01/18 07:15 Total Bilirubin 1.3 mg/dL (0.2-1.3) 04/01/18 07:15 AST 25 U/L (14-36) 04/01/18 07:15 ALT 24 U/L (9-52) 04/01/18 07:15 Alkaline Phosphatase 114 U/L (38-126) 04/01/18 07:15 Troponin I 0.0500 ng/mL (0.00-0.120) 03/29/18 17:05 NT-Pro-B Natriuret Pep 95011 pg/mL (0-900) H 03/29/18 02:02 Total Protein 7.1 g/dL (6.3-8.3) 04/01/18 07:15 Albumin 4.1 g/dL (3.5-5.0) 04/01/18 07:15 Globulin 3.0 gm/dL (2.2-3.9) 04/01/18 07:15 Albumin/Globulin Ratio 1.3 (1.0-2.1) 04/01/18 07:15 Triglycerides 150 mg/dL (0-149) H 03/30/18 07:41 Cholesterol 174 mg/dL (0-199) 03/30/18 07:41 LDL Cholesterol Direct 110 mg/dL (0-129) 03/30/18 07:41 HDL Cholesterol 38 mg/dL (30-70) 03/30/18 07:41 Free T4 2.17 ng/dL (0.78-2.19) 03/29/18 06:12 TSH 3rd Generation 4.40 mIU/L (0.46-4.68) 03/29/18 06:12 Arterial Blood Potassium 2.5 mmol/L (3.6-5.2) L* 03/29/18 02:05 Urine Color Yellow (YELLOW) 03/31/18 14:47 Urine Clarity Clear (Clear) 03/31/18 14:47 Urine pH 5.0 (5.0-8.0) 03/31/18 14:47 Ur Specific [place] 1.011 (1.003-1.030) 03/31/18 14:47 Urine Protein Negative mg/dL (NEGATIVE) 03/31/18 14:47 Urine Glucose (UA) Normal mg/dL (Normal) 03/31/18 14:47 Urine Ketones Negative mg/dL (NEGATIVE) 03/31/18 14:47 Urine Blood 1+ (NEGATIVE) H 03/31/18 14:47 Urine Nitrate Negative (NEGATIVE) 03/31/18 14:47 Urine Bilirubin Negative (NEGATIVE) 03/31/18 14:47 Urine Urobilinogen Normal mg/dL (0.2-1.0) 03/31/18 14:47 Ur Leukocyte Esterase 3+ Trey/uL (Negative) H 03/31/18 14:47 Urine WBC (Auto) 40 /hpf (0-5) H 03/31/18 14:47 Urine RBC (Auto) 9 /hpf (0-3) H 03/31/18 14:47 Ur Squamous Epith Cells 5 /hpf (0-5) 03/31/18 14:47 Urine Bacteria Rare (<OCC) 03/31/18 14:47 Hyaline Casts 0-2 /lpf (0-2) 03/31/18 14:47 Ur Random Sodium < 5 mmol/L 03/31/18 14:47 Urine Collection Time 24 HRS 03/31/18 14:47 Urine Total Volume 675 mL 03/31/18 14:47 Ur Protein 24 Hr Calc 67.5 mg/24hr (42-225) 03/31/18 14:47 - Hospital Course Hospital Course: On Admission: Patient is a 62 year old female with a history of HTN, HLD, hypothyroidism, CKD stage 3, gout, and newly diagnosed asthma, who presents with complaints of shortness of breath. Her symptoms originally started one year ago, has been worsening for the past 6 months, and were the worst since Thursday. She also admits to a cough, productive of white phlegm. She sleeps with 4 pillows and cannot walk more than 10 feet before becoming out of breath. She recently went to her turn laster, Dr. Lyons, who diagnosed her with asthma and prescribed several inhalers. Per her daughter at bedside, her mother recently came back from visiting her son and had been eating fried foods for the past week. Patient denies chest pain, abdominal pain, dyspnea, nausea, vomiting, fevers, headaches, vision changes, dizziness, dysuria, hematuria, changes in urinary stream, leg pain and leg swelling. On hospitalization: Patient was admitted to the hospital for shortness of breath on 03/29. At the time, Chest Xray was ordered, showing bilateral lung consolidation. Patient's BNP level was 13,000. Training Engineer Dr Kaur was consulted. Echocardiogram was ordered, which shows EF ~70%, Diastolic dysfunction, no AR, trace MR, mild TR, mild pulm HTN, mild PV regurg. The patient received the following medications: Duonebs Q6hr x 24 hours until 03/30/18, Lasix 20mg IV Q12hrs. Patient was also given O2 via nasal canula, with goal to keep spO2 more than 92%. troponin came back negative x 3. We started Lasix, Imdur and hydralazine, with daily weights, and I&O monitoring. on 03/31, Lasix was discontinued due to patient developing incidental prolonged Qtc interval and elevated creatinine from 1.6 to 2.2. we Discontinued Imdur and hydralazine. F/U EKG to monitor until QTC less than 500ms. Magnesium oxide 400mg PO TID was given. On 03/30 follow up EKG, patient still had prolonged QT. On 04/01, prolonged QT resolved on EKG. Normal K and Mg level As per Dr data miner Dr Kaur, recommendation, Patient will need an outpatient stress test. As per cardiac standpoint patient was stable to be D/C home. Patients Acute Kidney Injury was monitored via BUN/ Cr levels. Renal U/S was ordered on 03/30, which showed increased order collecting AC both kidneys compatible with medical renal disease and nonobstructive right interpolar calculi measuring up to 0.[address] Castelan, allow dehydraton, replete K, check proteinuria and repeat chemistries. Patients hypokalemia was managed with potassium 40 meq PO. On 04/01 potassium was 4.2. Patient history of gout was managed with Uloric. Medication to treat patients gout, Tenoretic, was held as it causes hyperuricemia. Patient's history of hypertension was managed with regular BP readings. Patients home meds amlodipine were hekd until completing echo and resumed. Patient history of hyperlipidemia was controlled with Crestor 20 mg PO HS. Patient had a heart healthy 2gm NA low carb diet. DVT prophylaxis was done with heparing 5000 units SC Q8, and SCDs. On discharge: Patient is to follow up with Cardiology Dr Kaur in three to four weeks. Patient is to follow with Cooker Tender Dr brothers in one week. Patient will follow primary care physician. Patient will stop taking the following medication: Atenolol/Chlorthalidone. Patient will continue to take: Lipitor 40mg by mouth at bedtime, Uloric 40 mg by mouth daily, Synthroid 50mcg by mouth daily, Ventolin 90 mcg inhalation as needed for Shortness of breath. Check Blood pressure at home. If it more than 120/80, take amlodipine 10 mg by mouth once a day. If symptoms reoccur or worsen, please return to the ED. Discharge Exam - Head Exam Head Exam: ATRAUMATIC, NORMAL INSPECTION, NORMOCEPHALIC - Eye Exam Eye Exam: EOMI, Normal appearance, PERRL Pupil Exam: PERRL - Neck Exam Neck exam: Full Rom - Respiratory Exam Respiratory Exam: Clear to PA & Lateral, NORMAL BREATHING PATTERN, UNREMARKABLE. absent: Rales, Rhonchi, Wheezes - Cardiovascular Exam Cardiovascular Exam: REGULAR RHYTHM, +S1, +S2 - GI/Abdominal Exam GI & Abdominal Exam: Normal Bowel Sounds. absent: Distended, Guarding, Tenderness - Extremities Exam Extremities exam: full ROM - Neurological Exam Neurological exam: Alert, Normal Gait, Oriented x3 - Psychiatric Exam Psychiatric exam: Normal Affect, Normal Mood - Skin Skin Exam: Intact, Normal Color Discharge Plan - Discharge Medications Prescriptions: amLODIPine [Norvasc] 10 mg PO DAILY #30 tab Atorvastatin [Lipitor] 40 mg PO HS #30 tab Febuxostat [Uloric] 40 mg PO DAILY #30 tablet Levothyroxine [Synthroid] 50 mcg PO DAILY #30 tab Ventolin HFA 90 mcg/actuation (8 g) 90 mcg INH PRN PRN #1 PRN Reason: Shortness Of Breath - Follow Up Plan Condition: FAIR Disposition: HOME/ ROUTINE Instructions: Heart Healthy Diet, Heart Failure, Adult (DC), Shortness of Breath (Dyspnea) (DC), Acute Kidney Failure (DC) Additional Instructions: Patient is to follow up with Cardiology Dr Kaur in three to four weeks. Patient is to follow with Cooker Tender Dr brothers in one week Follow your primary care physician Stop taking the following medication: Atenolol/Chlorthalidone Patient will continue to take: Lipitor 40mg by mouth at bedtime, Uloric 40 mg by mouth daily, Synthroid 50mcg by mouth daily, Ventolin 90 mcg inhalation as needed for Shortness of breath. Check Blood pressure at home. If it more than 120/80, take amlodipine 10 mg by mouth once a day Referrals: Truman Kaur MD [Staff Provider] - Guy Lyons MD [Staff Provider] - Judy Brothers MD [Staff Provider] - Eduard Ellsworth DO [Staff Provider] -
[2018-04-01 16:37] VITALS: PULSE 85
[2018-04-01 17:12] VITALS: BP 117/75; RESP 20; TEMP 98.2; O2SAT 93
--- NOTE | 2018-04-01 21:16 | CARD ---
APPROVED REPORT EKG Measurement Heart [id number] [id number] <Conclusion> Normal sinus rhythm ST & Marked T wave abnormality, consider inferior and anterolateral ischemia Prolonged QT Abnormal ECG
--- NOTE | 2018-04-02 00:13 | CP.PCM.PN ---
Subjective - Date & Time of Evaluation Date of Evaluation: 03/31/18 Time of Evaluation: 09:05 - Subjective Subjective: Patient seen and examined at bedside and in no acute distress. Patient is having improved breathing. Patient denies chest pain. Physical Examintion - Constitutional Appears: Non-toxic, No Acute Distress - Head Exam Head Exam: ATRAUMATIC, NORMAL INSPECTION, NORMOCEPHALIC - Eye Exam Eye Exam: EOMI, Normal appearance - ENT Exam ENT Exam: Mucous Membranes Moist - Neck Exam Neck Exam: Full ROM. absent: Tenderness - Respiratory Exam Respiratory Exam: Clear to Ausculation Bilateral, NORMAL BREATHING PATTERN. absent: Rales, Rhonchi, Wheezes, Respiratory Distress, Stridor - Cardiovascular Exam Cardiovascular Exam: REGULAR RHYTHM, RRR, +S1, +S2 - GI/Abdominal Exam GI & Abdominal Exam: Soft, Normal Bowel Sounds. absent: Tenderness - Extremities Exam Extremities Exam: Full ROM, Normal Inspection, Pedal Edema (trace pitting edema , improving ). absent: Tenderness - Back Exam Back Exam: NORMAL INSPECTION - Neurological Exam Neurological Exam: Alert, Awake, Oriented x3 - Psychiatric Exam Psychiatric exam: Normal Affect, Normal Mood - Skin Skin Exam: Intact, Normal Color, Warm Objective - Vital Signs/Intake and Output Vital Signs (last 24 hours): Temp Pulse Resp BP Pulse Ox 98.2 F 85 20 117/75 93 L 04/01/18 15:00 04/01/18 16:00 04/01/18 15:00 04/01/18 15:00 04/01/18 15:00 - Labs Labs: 03/31/18 06:51 04/01/18 07:15 PT 12.7 SECONDS (9.7-12.2) H 03/29/18 01:55 INR 1.2 03/29/18 01:55 APTT 29 SECONDS (21-34) 03/29/18 01:55 Assessment and Plan - Assessment and Plan (Free Text) Assessment: Acute Diastolic Heart Failure * upon admission on 03/29: BNP 13,300 * pulmonary congestion improved with Lasix * Troponin x3: negative * CXR: bilateral lower lung consolidations * Echo: EF ~70%, Diastolic dysfunction, no AR, trace MR, mild TR, mild pulm HTN , mild PV regurg. * Discontinued Lasix, Imdur and hydralazine * O2 via nasal cannula, keep SpO2 > 92% * Daily weights * Monitor I &O * Head of bed 45 degrees Prolonged QT and ST T waves changes, resolving * Normal K and Mg levels * Prolonged QT resolved on EKG * patient will need an outpatient stress test and should follow up with Dr. Kaur in 1 month * patient to Not take Clorthalidone as an outpatient ENDY * BUN/Cr: 43/2.1 * Dr. Giron consulted, help appreciated
== END 2018-04-01 18:47 | disposition home or self-care (01) | DRG 291 ==
LOC: C.ER 01:37 → C.9E 03:33 → C.6T 07:35
PROVIDERS: ADMIT Internal Medicine; ATTEND Internal Medicine
DX: I13.0 Hypertensive heart and chronic kidney disease with heart failure and stage 1 through stage 4 chronic kidney disease, or unspecified chronic kidney disease (principal); I50.31 Acute diastolic (congestive) heart failure; N17.9 Acute kidney failure, unspecified; N18.4 Chronic kidney disease, stage 4 (severe); E87.2 Acidosis; I27.20 Pulmonary hypertension, unspecified; J45.909 Unspecified asthma, uncomplicated; E87.6 Hypokalemia; T50.2X5A Adverse effect of carbonic-anhydrase inhibitors, benzothiadiazides and other diuretics, initial encounter; E03.9 Hypothyroidism, unspecified; E86.0 Dehydration; M10.9 Gout, unspecified; E78.5 Hyperlipidemia, unspecified; E78.00 Pure hypercholesterolemia, unspecified

== ENCOUNTER 2018-07-31 15:03 | Emergency (ER) | payer SELFPAY ==
[2018-07-31 15:13] VITALS: O2SAT 98
--- NOTE | 2018-07-31 16:13 | C.PDOC ---
History Of Present Illness 63 y/o female pt presents to the ER with c/o left-sided shoulder pain for x2 weeks. Pt reports she took advil for the pain with minor relief. Pt notes she avoids any shoulder activities due to pain. Pt denies weakness, loss of sensation, fever and chills. Time Seen by Provider: 07/31/18 15:29 Chief Complaint (Nursing): Upper Extremity Problem/Injury History Per: Patient History/Exam Limitations: no limitations Onset/Duration Of Symptoms: Days (x2 weeks) Current Symptoms Are (Timing): Still Present Past Medical History Reviewed: Historical Data, Nursing Documentation, Vital Signs Vital Signs: Last Vital Signs Temp 98.5 F 07/31/18 15:10 Pulse 77 07/31/18 15:10 Resp 16 07/31/18 15:10 BP 176/99 H 07/31/18 15:10 Pulse Ox 98 07/31/18 15:10 - Medical History PMH: Asthma, Bronchitis, HTN, Hypercholesterolemia, Hypothyroidism, Chronic Kidney Disease ("STAGE 3") Family History: States: Unknown Family Hx - Social History Hx Tobacco Use: No Hx Alcohol Use: No Hx Substance Use: No - Immunization History Hx Tetanus Toxoid Vaccination: No Hx Influenza Vaccination: Yes Hx Pneumococcal Vaccination: No Review Of Systems Except As Marked, All Systems Reviewed And Found Negative. Constitutional: Negative for: Fever, Chills Musculoskeletal: Positive for: Shoulder Pain (left-side) Neurological: Negative for: Weakness, Other (loss of sensation) Physical Exam - Physical Exam Appears: Well, Non-toxic, No Acute Distress Skin: Normal Color, Warm, Dry Head: Atraumatic, Normacephalic Eye(s): bilateral: Normal Inspection, EOMI Chest: Symmetrical Cardiovascular: Rhythm Regular Respiratory: Normal Breath Sounds Extremity: Tenderness (lateral aspect of shoulder ), No Deformity, No Swelling Neurological/Psych: Oriented x3, Normal Speech ED Course And Treatment O2 Sat by Pulse Oximetry: 98 (RA) Pulse Ox Interpretation: Normal - Other Rad No standard instances X-Ray: Interpreted by Me Interpretation: X-Ray Shoulder: no fx Progress Note: Treated with tylenol PO. On re-evaluation in no distress Reassessment Condition: Improved Medical Decision Making Medical Decision Making: Impression: left-sided shoulder pain plans: -- toradol -- tyelnol -- shoulder XR Reassess: On reassessment, patient is resting comfortably, with improvement of shoulder pain. Patient remains afebrile, with no bony tenderness, extremity numbness or weakness, or abdominal pain. Patient is ambulatory in the emergency department with no signs of discomfort. Patient was advised to follow up with physician/clinic in 1-2 days. Disposition Counseled Patient/Family Regarding: Studies Performed, Diagnosis, Need For Followup - Disposition Referrals: [facility] [place] [Outside] Luis Shaver III, MD [Staff Provider] - Disposition: HOME/ ROUTINE Disposition Time: 16:15 Condition: STABLE Additional Instructions: Follow up with orthopedic and your PMD for further evaluation Tylenol as needed for pain Stop advil or motrin Instructions: Shoulder Sprain, Tendonitis Forms: [facility] (K[place]akh) - POA Present On Arrival: None - Clinical Impression Clinical Impression: Sprain - PA / BUTTON INSPECTOR / Resident Statement / has reviewed & agrees with the documentation as recorded. - Scribe Statement The provider has reviewed the documentation as recorded by the Alex Price Do All medical record entries made by the Alex were at my direction and personally dictated by me. I have reviewed the chart and agree that the record accurately reflects my personal performance of the history, physical exam, medical decision making, and the department course for this patient. I have also personally directed, reviewed, and agree with the discharge instructions and disposition.
[2018-07-31 16:33] VITALS: BP 152/80; PULSE 66; RESP 17; TEMP 98.1
--- NOTE | 2018-07-31 18:24 | RAD ---
Date of service: 07/31/2018 PROCEDURE: Radiographs of the Left Shoulder HISTORY: pain COMPARISON: No prior. FINDINGS: BONES: No acute fracture or destructive bony lesion identified. JOINTS: Advanced degenerative changes seen the acromioclavicular joint and are marginal at the glenohumeral joint. SOFT TISSUES: Normal. OTHER FINDINGS: None. IMPRESSION: No acute fracture or dislocation identified left shoulder. Advanced degenerative joint disease acromioclavicular joint.
--- NOTE | 2018-08-03 15:23 | CARD ---
APPROVED REPORT Date of service: 07/31/2018 EKG Measurement Heart [id number] <Conclusion> Normal sinus rhythm Right bundle branch block T wave abnormality, consider inferior ischemia Abnormal ECG
== END 2018-07-31 16:33 | disposition home or self-care (01) ==
LOC: C.ER 15:03
DX: S43.402A Unspecified sprain of left shoulder joint, initial encounter (principal); X58.XXXA Exposure to other specified factors, initial encounter; Y92.9 Unspecified place or not applicable; I12.9 Hypertensive chronic kidney disease with stage 1 through stage 4 chronic kidney disease, or unspecified chronic kidney disease; N18.3 Chronic kidney disease, stage 3 (moderate)